=== PATIENT | female | born 1975 | race African-American/Black ===

== ENCOUNTER 2017-07-18 09:45 | Emergency (ER) | payer MEDICARE, MEDICAID ==
[~2017-07-18] VITALS: Ht 160 cm; Wt 53.0 kg
[2017-07-18 10:30] LABS: HEMATOCRIT. 30.3 % (36.0-48.0); HEMOGLOBIN. 9.5 g/dL (12.0-16.0); MEAN CORPUSCULAR VOLUME 73.1 fL (81.0-99.0); MEAN PLATELET VOLUME 8.8 fl (7.4-10.4); PLATELET 231 x1000/uL (130-400); RED BLOOD CELL COUNT 4.14 mill/uL (4.2-5.4); RED CELL DISTRIBUTION WIDTH 16.7 % (11.6-14.6)
[2017-07-18] MEDS: ONDANSETRON HCL 4MG/2ML VIAL IV STA (10:31)
[2017-07-18] MEDS: SODIUM CHLORIDE 0.9% 1,000 ML IV ONE (10:31)
[2017-07-18 10:35] LABS: CLARITY URINE CLEAR (CLEAR); COLOR URINE YELLOW (YELLOW); GLUCOSE URINE NEGATIVE (NEGATIVE); KETONES URINE TRACE (NEGATIVE); LEUKOCYTE ESTERASE URINE 2+ (NEGATIVE); NITRITE URINE NEGATIVE (NEGATIVE); OCCULT BLOOD URINE NEGATIVE (NEGATIVE); PROTEIN URINE NEGATIVE (NEGATIVE); SPECIFIC GRAVITY URINE 1.016 (1.005-1.030); UROBILINOGEN URINE 0.2 E.U./dL (0.2-1.0)
[2017-07-18 10:49] LABS: CHLORIDE 103 mEq/L (98-107)
[2017-07-18 10:59] LABS: CARBON DIOXIDE 27 mEq/L (21-32)
[2017-07-18 11:02] LABS: PLATELET ESTIMATE NORMAL
[2017-07-18] MEDS: KETOROLAC 30MG/ML VIAL IV ONE (11:14)
[2017-07-18] MEDS: FAMOTIDINE 20MG/2ML VIAL IV ONE (11:15)
[2017-07-18 12:03] VITALS: BP 114/66
== END 2017-07-18 12:27 | disposition home or self-care (01) ==
LOC: ER 10:27
DX: N39.0 Urinary tract infection, site not specified (principal); R51 Headache; R19.7 Diarrhea, unspecified; J45.909 Unspecified asthma, uncomplicated; Z88.8 Allergy status to other drugs, medicaments and biological substances
CPT/HCPCS: 36415; 80053; 81001; 81025; 83690; 85025; 96361; 96374; 96375; 99284; J1885; J3490; J7030; J2405

== ENCOUNTER 2018-10-12 09:41 | Emergency (ER) | payer MEDICARE, MEDICAID ==
[~2018-10-12] VITALS: Ht 160 cm; Wt 55.0 kg
[2018-10-12] MEDS ORDERED: ACETAMINOPHEN 325MG TABLET PO STA (10:19)
[2018-10-12] MEDS ORDERED: SODIUM CHLORIDE 0.9% 1000ML BAG (SEPSIS BOLUS) IV ONE (10:30)
[2018-10-12 10:46] LABS: CLARITY URINE CLEAR (CLEAR); COLOR URINE YELLOW (YELLOW); KETONES URINE NEGATIVE (NEGATIVE); LEUKOCYTE ESTERASE URINE NEGATIVE (NEGATIVE); NITRITE URINE NEGATIVE (NEGATIVE); OCCULT BLOOD URINE NEGATIVE (NEGATIVE); PROTEIN URINE TRACE (NEGATIVE); SPECIFIC GRAVITY URINE 1.021 (1.005-1.030); UROBILINOGEN URINE 0.2 E.U./dL (0.2-1.0)
[2018-10-12 11:14] LABS: BASOPHILS % 0.8 % (0.0-2.0); EOSINOPHILS % 0.2 % (0.0-5.0); HEMATOCRIT. 34.8 % (36.0-48.0); HEMOGLOBIN. 11.2 g/dL (12.0-16.0); LYMPHOCYTES % 30.2 % (20.0-50.0); MEAN CORPUSCULAR HEMOGLOBIN 26.4 pg (28.0-32.0); MEAN CORPUSCULAR VOLUME 81.9 fL (81.0-99.0); MEAN PLATELET VOLUME 11.3 fl (7.4-10.4); MONOCYTES % 6.9 % (2.0-8.0); NEUTROPHILS % 61.9 % (40.0-76.0); PLATELET 159 x1000/uL (130-400); RED BLOOD CELL COUNT 4.25 mill/uL (4.2-5.4); RED CELL DISTRIBUTION WIDTH 15.7 % (11.6-14.6)
[2018-10-12 11:16] LABS: CHLORIDE 107 mEq/L (98-107)
[2018-10-12 11:17] LABS: INR 1.1; PARTIAL THROMBOPLASTIN TIME 25.2 sec (23.4-31.0); PROTHROMBIN TIME 10.6 sec (9.1-11.1)
[2018-10-12 11:22] LABS: HCG SCREEN NEGATIVE
[2018-10-12] MEDS ORDERED: CEFTRIAXONE 1 G PREMIX 50 ML IV ONE (11:45)
[2018-10-12 13:31] VITALS: BP 160/81
== END 2018-10-12 13:35 | disposition home or self-care (01) ==
LOC: ER 09:41
DX: N39.0 Urinary tract infection, site not specified (principal); D72.819 Decreased white blood cell count, unspecified; R94.31 Abnormal electrocardiogram [ECG] [EKG]; R05 Cough; R94.5 Abnormal results of liver function studies; J45.909 Unspecified asthma, uncomplicated; R50.9 Fever, unspecified; Z88.8 Allergy status to other drugs, medicaments and biological substances
CPT/HCPCS: 36415; 71045; 80053; 81003; 81025; 83605; 83690; 84145; 84443; 84703; 85025; 85610; 85730; 87040; 87086; 93005; 96361; 96365; 99284; J0696; J7030

== ENCOUNTER 2018-10-22 15:28 | Emergency (ER) | payer MEDICARE, MEDICAID ==
[~2018-10-22] VITALS: Ht 165.1 cm; Wt 60.0 kg
[2018-10-22] MEDS ORDERED: KETOROLAC 30MG/ML VIAL IV STA (16:01)
[2018-10-22] MEDS ORDERED: SODIUM CHLORIDE 0.9% 1,000 ML IV ONE (16:01)
[2018-10-22 17:06] LABS: CLARITY URINE TURBID (CLEAR); COLOR URINE DARK YELLOW (YELLOW); KETONES URINE 1+ (NEGATIVE); LEUKOCYTE ESTERASE URINE 1+ (NEGATIVE); NITRITE URINE NEGATIVE (NEGATIVE); OCCULT BLOOD URINE 2+ (NEGATIVE); PROTEIN URINE 3+ (NEGATIVE); SPECIFIC GRAVITY URINE 1.026 (1.005-1.030)
[2018-10-22 17:18] LABS: BASOPHILS % 0.2 % (0.0-2.0); EOSINOPHILS % 0.1 % (0.0-5.0); HEMATOCRIT. 33.6 % (36.0-48.0); HEMOGLOBIN. 10.7 g/dL (12.0-16.0); LYMPHOCYTES % 11.2 % (20.0-50.0); MEAN CORPUSCULAR HEMOGLOBIN 25.8 pg (28.0-32.0); MEAN CORPUSCULAR VOLUME 81.3 fL (81.0-99.0); MEAN PLATELET VOLUME 11.6 fl (7.4-10.4); MONOCYTES % 7.1 % (2.0-8.0); NEUTROPHILS % 81.4 % (40.0-76.0); PLATELET 147 x1000/uL (130-400); RED BLOOD CELL COUNT 4.13 mill/uL (4.2-5.4); RED CELL DISTRIBUTION WIDTH 16.4 % (11.6-14.6)
[2018-10-22 17:19] LABS: CHLORIDE 102 mEq/L (98-107)
[2018-10-22 17:27] LABS: CREATINE KINASE 358 IU/L (26-192)
[2018-10-22 17:42] LABS: HCG SCREEN NEGATIVE
[2018-10-22 18:39] LABS: INR 1.1; PROTHROMBIN TIME 10.9 sec (9.1-11.1)
[2018-10-22 19:49] VITALS: BP 136/70
== END 2018-10-22 20:52 | disposition home or self-care (01) ==
LOC: ER 16:34
DX: K76.89 Other specified diseases of liver (principal); R79.89 Other specified abnormal findings of blood chemistry; E86.0 Dehydration; D64.9 Anemia, unspecified; M79.10 Myalgia, unspecified site; J45.909 Unspecified asthma, uncomplicated; R19.7 Diarrhea, unspecified
CPT/HCPCS: 36415; 71045; 76705; 80053; 81003; 81025; 82550; 83605; 83690; 83735; 84703; 85025; 85610; 87804; 96361; 96374; 99284; J1885; J7030

== ENCOUNTER 2018-12-30 12:53 | Inpatient (IN) | payer MEDICARE, MEDICAID ==
[~2018-12-30] VITALS: Ht 154.9 cm; Wt 70.8 kg
[2018-12-30] MEDS ORDERED: SODIUM CHLORIDE 0.9% 1,000 ML IV ONE (13:19)
[2018-12-30 14:25] LABS: *AMPHETAMINES SCREEN URINE NEGATIVE (NEGATIVE); *BARBITURATES SCREEN URINE NEGATIVE (NEGATIVE); *BENZODIAZEPINES SCREEN URINE NEGATIVE (NEGATIVE)
[2018-12-30 14:26] LABS: *COCAINE SCREEN URINE NEGATIVE (NEGATIVE); CANNABINOID URINE SCREEN NEGATIVE (NEGATIVE); METHADONE URINE SCREEN NEGATIVE (NEGATIVE); OPIATES URINE SCREEN NEGATIVE (NEGATIVE); PHENCYCLIDINE URINE SCREEN NEGATIVE (NEGATIVE)
[2018-12-30 14:50] LABS: BASOPHILS % 0.4 % (0.0-2.0); HEMATOCRIT. 31.2 % (36.0-48.0); LYMPHOCYTES % 14.5 % (20.0-50.0); MEAN CORPUSCULAR HEMOGLOBIN 27.7 pg (28.0-32.0); MEAN CORPUSCULAR VOLUME 86.3 fL (81.0-99.0); MEAN PLATELET VOLUME 9.8 fl (7.4-10.4); MONOCYTES % 4.5 % (2.0-8.0); NEUTROPHILS % 80.6 % (40.0-76.0); PLATELET 428 x1000/uL (130-400); RED BLOOD CELL COUNT 3.61 mill/uL (4.2-5.4); RED CELL DISTRIBUTION WIDTH 19.3 % (11.6-14.6)
[2018-12-30 15:00] LABS: CHLORIDE 112 mEq/L (98-107)
[2018-12-30 15:04] LABS: INR 1.1; PARTIAL THROMBOPLASTIN TIME 23.1 sec (23.4-31.0); PROTHROMBIN TIME 10.6 sec (9.1-11.1)
[2018-12-30 15:07] LABS: ETHANOL BLOOD < 10 mg/dL
[2018-12-30 15:29] LABS: HCG SCREEN NEGATIVE
[2018-12-30 16:10] LABS: CLARITY URINE CLEAR (CLEAR); COLOR URINE DARK YELLOW (YELLOW); KETONES URINE TRACE (NEGATIVE); LEUKOCYTE ESTERASE URINE NEGATIVE (NEGATIVE); NITRITE URINE NEGATIVE (NEGATIVE); OCCULT BLOOD URINE TRACE (NEGATIVE); PROTEIN URINE 1+ (NEGATIVE); SPECIFIC GRAVITY URINE 1.017 (1.005-1.030)
[2018-12-30] MEDS ORDERED: ONDANSETRON HCL 4MG/2ML INJ IV PRN (19:00)
[2018-12-30 19:52] LABS: HEPATITIS B SURFACE ANTIGEN NEGATIVE
[2018-12-30 20:22] LABS: HEPATITIS A AB IGM NEGATIVE (NEGATIVE)
[2018-12-31 01:30] VITALS: BP 145/79
[2018-12-31] MEDS: DEXT 5%/0.45% NACL 1000ML 1,000 ML IV SCH ×3 (03:50→20:44)
[2018-12-31 04:00] VITALS: BP 161/95
[2018-12-31 07:21] LABS: BASOPHILS % 0.4 % (0.0-2.0); EOSINOPHILS % 0.1 % (0.0-5.0); HEMATOCRIT. 30.4 % (36.0-48.0); HEMOGLOBIN. 9.9 g/dL (12.0-16.0); LYMPHOCYTES % 17.2 % (20.0-50.0); MEAN CORPUSCULAR HEMOGLOBIN 28.6 pg (28.0-32.0); MEAN CORPUSCULAR VOLUME 87.9 fL (81.0-99.0); MEAN PLATELET VOLUME 9.3 fl (7.4-10.4); MONOCYTES % 5.9 % (2.0-8.0); NEUTROPHILS % 76.4 % (40.0-76.0); PLATELET 387 x1000/uL (130-400); RED BLOOD CELL COUNT 3.45 mill/uL (4.2-5.4)
[2018-12-31 08:00] VITALS: BP 161/93
[2018-12-31] MEDS: FOLIC ACID 1MG TABLET PO SCH (09:08)
[2018-12-31] MEDS: THIAMINE HCL 100MG TABLET PO SCH (09:08)
[2018-12-31] MEDS: HYDRALAZINE 20MG/ML VIAL IV PRN (09:09)
[2018-12-31] MEDS: MULTIVITAMINS,THER W-MINERALS TABLET PO SCH (09:09)
[2018-12-31 09:26] LABS: T4 FREE 1.24 ng/dL (0.76-1.46)
[2018-12-31 10:31] LABS: FOLIC ACID (FOLATE) SERUM 9.6 ng/mL (>5.38)
[2018-12-31 12:01] VITALS: BP 139/85
[2018-12-31] MEDS ORDERED: IPRATROPIUM/ALBUTEROL 0.5-3(2.5)MG/3ML NEB HHN PRN (13:30)
[2018-12-31] MEDS: AMLODIPINE 5MG TABLET PO SCH (13:57)
[2018-12-31 16:00] VITALS: BP 154/93
[2018-12-31 20:31] VITALS: BP 141/89
[2018-12-31] MEDS: METOPROLOL TARTRATE 25MG TABLET PO SCH (20:43)
[2019-01-01 00:36] VITALS: BP 147/92
[2019-01-01 04:00] VITALS: BP 154/97
[2019-01-01 06:37] LABS: CHLORIDE 114 mEq/L (98-107)
[2019-01-01 06:50] LABS: BASOPHILS % 0.5 % (0.0-2.0); EOSINOPHILS % 0.2 % (0.0-5.0); HEMATOCRIT. 29.6 % (36.0-48.0); HEMOGLOBIN. 9.4 g/dL (12.0-16.0); LYMPHOCYTES % 17.2 % (20.0-50.0); MEAN CORPUSCULAR HEMOGLOBIN 27.3 pg (28.0-32.0); MEAN CORPUSCULAR VOLUME 86.1 fL (81.0-99.0); MEAN PLATELET VOLUME 8.5 fl (7.4-10.4); MONOCYTES % 5.6 % (2.0-8.0); NEUTROPHILS % 76.5 % (40.0-76.0); PLATELET 334 x1000/uL (130-400); RED BLOOD CELL COUNT 3.44 mill/uL (4.2-5.4); RED CELL DISTRIBUTION WIDTH 18.5 % (11.6-14.6)
[2019-01-01 08:00] VITALS: BP 128/87
[2019-01-01] MEDS: AMLODIPINE 5MG TABLET PO SCH ×2 (08:36→21:36)
[2019-01-01] MEDS: METOPROLOL TARTRATE 25MG TABLET PO SCH ×2 (08:36→21:35)
[2019-01-01] MEDS: THIAMINE HCL 100MG TABLET PO SCH (08:36)
[2019-01-01] MEDS: MULTIVITAMINS,THER W-MINERALS TABLET PO SCH (08:36)
[2019-01-01] MEDS: FOLIC ACID 1MG TABLET PO SCH (08:36)
[2019-01-01] MEDS: DEXT 5%/0.45% NACL 1000ML 1,000 ML IV SCH ×3 (11:52→21:45)
[2019-01-01 12:00] VITALS: BP_SYST 161; BP_DIAS 86; BP_DIAS 94
[2019-01-01] MEDS: HYDRALAZINE 20MG/ML VIAL IV PRN (12:03)
[2019-01-01 16:00] VITALS: BP 151/88
[2019-01-01 20:00] VITALS: BP 156/94
[2019-01-02] VITALS: BP 158/92
[2019-01-02 04:00] VITALS: BP 138/90
[2019-01-02 07:09] LABS: HEMOGLOBIN. 9.7 g/dL (12.0-16.0); MEAN CORPUSCULAR HEMOGLOBIN 27.7 pg (28.0-32.0); MEAN PLATELET VOLUME 8.2 fl (7.4-10.4); PLATELET 291 x1000/uL (130-400); RED BLOOD CELL COUNT 3.49 mill/uL (4.2-5.4); RED CELL DISTRIBUTION WIDTH 18.5 % (11.6-14.6)
[2019-01-02 08:00] VITALS: BP 144/91
[2019-01-02] MEDS: THIAMINE HCL 100MG TABLET PO SCH (09:23)
[2019-01-02] MEDS: AMLODIPINE 5MG TABLET PO SCH ×2 (09:23→20:28)
[2019-01-02] MEDS: FOLIC ACID 1MG TABLET PO SCH (09:23)
[2019-01-02] MEDS: METOPROLOL TARTRATE 25MG TABLET PO SCH ×2 (09:23→20:28)
[2019-01-02] MEDS: MULTIVITAMINS,THER W-MINERALS TABLET PO SCH (09:23)
[2019-01-02 10:12] LABS: CHLORIDE 112 mEq/L (98-107)
[2019-01-02 12:00] VITALS: BP 139/92
[2019-01-02] MEDS: DEXT 5%/0.45% NACL 1000ML 1,000 ML IV SCH (14:30)
[2019-01-02 16:00] VITALS: BP 148/90
[2019-01-02] MEDS: ACETAMINOPHEN 325MG TABLET PO PRN (17:55)
[2019-01-02 19:59] VITALS: BP 126/85
[2019-01-02 20:59] LABS: NUCLEATED RED BLOOD CELLS 1 /100 WBC; PLATELET ESTIMATE NORMAL
[2019-01-03] VITALS: BP 118/79
[2019-01-03] MEDS: DEXT 5%/0.45% NACL 1000ML 1,000 ML IV SCH ×2 (02:19→11:48)
[2019-01-03 04:00] VITALS: BP 135/86
[2019-01-03 07:56] LABS: BASOPHILS % 0.3 % (0.0-2.0); HEMATOCRIT. 30.4 % (36.0-48.0); HEMOGLOBIN. 9.7 g/dL (12.0-16.0); LYMPHOCYTES % 8.1 % (20.0-50.0); MEAN CORPUSCULAR HEMOGLOBIN 27.8 pg (28.0-32.0); MEAN CORPUSCULAR VOLUME 87.6 fL (81.0-99.0); MEAN PLATELET VOLUME 8.5 fl (7.4-10.4); MONOCYTES % 4.4 % (2.0-8.0); NEUTROPHILS % 87.2 % (40.0-76.0); PLATELET 222 x1000/uL (130-400); RED BLOOD CELL COUNT 3.47 mill/uL (4.2-5.4); RED CELL DISTRIBUTION WIDTH 18.9 % (11.6-14.6)
[2019-01-03 07:59] LABS: CHLORIDE 110 mEq/L (98-107)
[2019-01-03 08:00] VITALS: BP 141/45
[2019-01-03] MEDS: FOLIC ACID 1MG TABLET PO SCH (08:22)
[2019-01-03] MEDS: MULTIVITAMINS,THER W-MINERALS TABLET PO SCH (08:22)
[2019-01-03] MEDS: THIAMINE HCL 100MG TABLET PO SCH (08:22)
[2019-01-03] MEDS: AMLODIPINE 5MG TABLET PO SCH ×2 (08:22→21:18)
[2019-01-03] MEDS: METOPROLOL TARTRATE 25MG TABLET PO SCH (08:23)
[2019-01-03 12:00] VITALS: BP 142/94
[2019-01-03] MEDS ORDERED: LIDOCAINE HCL 1% 20ML VIAL (Pyxis) INJ ONE (14:30)
[2019-01-03] MEDS: MORPHINE SULFATE 4 MG/ML CPJ (NOT FOR IM USE) IV PRN (14:57)
[2019-01-03] MEDS ORDERED: MORPHINE SULFATE 4 MG/ML CPJ (NOT FOR IM USE) IV PRN (15:00)
[2019-01-03 17:20] LABS: GLUCOSE CSF 60 mg/dL (41-75)
[2019-01-03 20:00] VITALS: BP 140/84
[2019-01-03] MEDS: METOPROLOL TARTRATE 50MG TABLET PO SCH (21:18)
[2019-01-04] VITALS: BP 129/67
[2019-01-04] MEDS: ACETAMINOPHEN 325MG TABLET PO PRN ×3 (01:49→21:05)
[2019-01-04] MEDS: DEXT 5%/0.45% NACL 1000ML 1,000 ML IV SCH ×3 (02:01→22:00)
[2019-01-04 04:00] VITALS: BP 118/75
[2019-01-04 06:01] LABS: BASOPHILS % 0.1 % (0.0-2.0); EOSINOPHILS % 0.1 % (0.0-5.0); HEMATOCRIT. 28.6 % (36.0-48.0); HEMOGLOBIN. 9.1 g/dL (12.0-16.0); LYMPHOCYTES % 10.8 % (20.0-50.0); MEAN CORPUSCULAR HEMOGLOBIN 27.8 pg (28.0-32.0); MEAN CORPUSCULAR VOLUME 87.5 fL (81.0-99.0); MEAN PLATELET VOLUME 8.9 fl (7.4-10.4); MONOCYTES % 4.2 % (2.0-8.0); NEUTROPHILS % 84.8 % (40.0-76.0); PLATELET 193 x1000/uL (130-400); RED BLOOD CELL COUNT 3.27 mill/uL (4.2-5.4); RED CELL DISTRIBUTION WIDTH 18.6 % (11.6-14.6)
[2019-01-04 06:16] LABS: CHLORIDE 110 mEq/L (98-107)
[2019-01-04 08:00] VITALS: BP 135/83
[2019-01-04] MEDS: FOLIC ACID 1MG TABLET PO SCH (10:10)
[2019-01-04] MEDS: MULTIVITAMINS,THER W-MINERALS TABLET PO SCH (10:10)
[2019-01-04] MEDS: METOPROLOL TARTRATE 50MG TABLET PO SCH ×2 (10:10→21:05)
[2019-01-04] MEDS: AMLODIPINE 5MG TABLET PO SCH ×2 (10:10→21:05)
[2019-01-04] MEDS: THIAMINE HCL 100MG TABLET PO SCH (10:11)
[2019-01-04] MEDS ORDERED: POTASSIUM CHLORIDE 20MEQ TABLET SR PO NR (15:21)
[2019-01-04 20:00] VITALS: BP 147/84
[2019-01-04 20:28] LABS: CLARITY URINE CLOUDY (CLEAR); COLOR URINE YELLOW (YELLOW); KETONES URINE NEGATIVE (NEGATIVE); LEUKOCYTE ESTERASE URINE TRACE (NEGATIVE); NITRITE URINE NEGATIVE (NEGATIVE); OCCULT BLOOD URINE 3+ (NEGATIVE); PH URINE 5.5 (4.5-8.0); PROTEIN URINE 1+ (NEGATIVE); SPECIFIC GRAVITY URINE 1.015 (1.005-1.030); UROBILINOGEN URINE 0.2 E.U./dL (0.2-1.0)
[2019-01-04 22:40] VITALS: BP 111/71
[2019-01-05] VITALS (12 sets, daily range): BP systolic 124–144; BP diastolic 67–88
[2019-01-05] MEDS: CEFEPIME 2,000 MG in DEXT 5% WATER 100 ML IV SCH ×2 (01:03→12:40)
[2019-01-05] MEDS: DEXT 5%/0.45% NACL 1000ML 1,000 ML IV SCH ×2 (06:04→12:41)
[2019-01-05 07:53] LABS: EOSINOPHILS % 0.4 % (0.0-5.0); HEMATOCRIT. 27.3 % (36.0-48.0); HEMOGLOBIN. 8.6 g/dL (12.0-16.0); LYMPHOCYTES % 11.1 % (20.0-50.0); MEAN CORPUSCULAR HEMOGLOBIN 27.3 pg (28.0-32.0); MEAN CORPUSCULAR VOLUME 85.9 fL (81.0-99.0); MEAN PLATELET VOLUME 9.4 fl (7.4-10.4); MONOCYTES % 4.8 % (2.0-8.0); NEUTROPHILS % 83.7 % (40.0-76.0); PLATELET 190 x1000/uL (130-400); RED BLOOD CELL COUNT 3.17 mill/uL (4.2-5.4); RED CELL DISTRIBUTION WIDTH 18.2 % (11.6-14.6)
[2019-01-05 07:54] LABS: CHLORIDE 106 mEq/L (98-107)
[2019-01-05] MEDS: MULTIVITAMINS,THER W-MINERALS TABLET PO SCH (09:08)
[2019-01-05] MEDS: AMLODIPINE 5MG TABLET PO SCH ×2 (09:08→21:18)
[2019-01-05] MEDS: METOPROLOL TARTRATE 50MG TABLET PO SCH ×2 (09:08→21:19)
[2019-01-05] MEDS: THIAMINE HCL 100MG TABLET PO SCH (09:08)
[2019-01-05] MEDS: FOLIC ACID 1MG TABLET PO SCH (09:08)
[2019-01-05] MEDS: MORPHINE SULFATE 4 MG/ML CPJ (NOT FOR IM USE) IV PRN (09:13)
[2019-01-05] MEDS: ACETAMINOPHEN 325MG TABLET PO PRN (17:16)
[2019-01-06] VITALS (11 sets, daily range): BP systolic 130–145; BP diastolic 67–87
[2019-01-06] MEDS: DEXT 5%/0.45% NACL 1000ML 1,000 ML IV SCH ×3 (05:39→19:57)
[2019-01-06] MEDS: CEFEPIME 2,000 MG in DEXT 5% WATER 100 ML IV SCH ×2 (05:39→13:17)
[2019-01-06 06:35] LABS: HEMATOCRIT. 27.4 % (36.0-48.0); HEMOGLOBIN. 8.8 g/dL (12.0-16.0); MEAN CORPUSCULAR HEMOGLOBIN 27.5 pg (28.0-32.0); MEAN CORPUSCULAR VOLUME 85.6 fL (81.0-99.0); MEAN PLATELET VOLUME 9.4 fl (7.4-10.4); PLATELET 193 x1000/uL (130-400); RED BLOOD CELL COUNT 3.19 mill/uL (4.2-5.4); RED CELL DISTRIBUTION WIDTH 17.9 % (11.6-14.6)
[2019-01-06 07:11] LABS: CHLORIDE 104 mEq/L (98-107)
[2019-01-06] MEDS: THIAMINE HCL 100MG TABLET PO SCH (08:48)
[2019-01-06] MEDS: METOPROLOL TARTRATE 50MG TABLET PO SCH ×2 (08:48→20:04)
[2019-01-06] MEDS: AMLODIPINE 5MG TABLET PO SCH ×2 (08:48→20:04)
[2019-01-06] MEDS: MULTIVITAMINS,THER W-MINERALS TABLET PO SCH (08:48)
[2019-01-06] MEDS: FOLIC ACID 1MG TABLET PO SCH (08:48)
[2019-01-06 12:37] LABS: PLATELET ESTIMATE NORMAL
[2019-01-07] VITALS (12 sets, daily range): BP systolic 117–151; BP diastolic 66–82
[2019-01-07] MEDS: CEFEPIME 2,000 MG in DEXT 5% WATER 100 ML IV SCH ×2 (00:49→12:17)
[2019-01-07] MEDS: DEXT 5%/0.45% NACL 1000ML 1,000 ML IV SCH ×2 (06:15→15:58)
[2019-01-07 08:14] LABS: BASOPHILS % 0.8 % (0.0-2.0); EOSINOPHILS % 0.2 % (0.0-5.0); HEMOGLOBIN. 7.8 g/dL (12.0-16.0); LYMPHOCYTES % 20.2 % (20.0-50.0); MEAN CORPUSCULAR HEMOGLOBIN 27.2 pg (28.0-32.0); MEAN CORPUSCULAR VOLUME 83.5 fL (81.0-99.0); MEAN PLATELET VOLUME 9.3 fl (7.4-10.4); MONOCYTES % 4.3 % (2.0-8.0); NEUTROPHILS % 74.5 % (40.0-76.0); PLATELET 155 x1000/uL (130-400); RED BLOOD CELL COUNT 2.88 mill/uL (4.2-5.4); RED CELL DISTRIBUTION WIDTH 17.3 % (11.6-14.6)
[2019-01-07 08:53] LABS: CHLORIDE 104 mEq/L (98-107)
[2019-01-07] MEDS: FOLIC ACID 1MG TABLET PO SCH (09:27)
[2019-01-07] MEDS: AMLODIPINE 5MG TABLET PO SCH ×2 (09:27→21:35)
[2019-01-07] MEDS: MULTIVITAMINS,THER W-MINERALS TABLET PO SCH (09:28)
[2019-01-07] MEDS: THIAMINE HCL 100MG TABLET PO SCH (09:28)
[2019-01-07] MEDS: METOPROLOL TARTRATE 50MG TABLET PO SCH ×2 (09:28→21:35)
[2019-01-07 11:49] LABS: TOTAL IRON BINDING CAPACITY 132 ug/dL (250-450)
[2019-01-07] MEDS: ACETAMINOPHEN 325MG TABLET PO PRN (16:37)
[2019-01-08] VITALS (10 sets, daily range): BP systolic 124–150; BP diastolic 73–85
[2019-01-08] MEDS: CEFEPIME 2,000 MG in DEXT 5% WATER 100 ML IV SCH ×2 (00:28→11:53)
[2019-01-08] MEDS: DEXT 5%/0.45% NACL 1000ML 1,000 ML IV SCH ×3 (03:04→21:13)
[2019-01-08 06:23] LABS: CHLORIDE 104 mEq/L (98-107)
[2019-01-08 07:43] LABS: BASOPHILS % 0.7 % (0.0-2.0); EOSINOPHILS % 0.4 % (0.0-5.0); HEMOGLOBIN. 7.5 g/dL (12.0-16.0); LYMPHOCYTES % 24.8 % (20.0-50.0); MEAN CORPUSCULAR HEMOGLOBIN 27.3 pg (28.0-32.0); MEAN CORPUSCULAR VOLUME 83.5 fL (81.0-99.0); MEAN PLATELET VOLUME 9.9 fl (7.4-10.4); MONOCYTES % 3.8 % (2.0-8.0); NEUTROPHILS % 70.3 % (40.0-76.0); PLATELET 180 x1000/uL (130-400); RED BLOOD CELL COUNT 2.76 mill/uL (4.2-5.4); RED CELL DISTRIBUTION WIDTH 17.4 % (11.6-14.6)
[2019-01-08] MEDS: THIAMINE HCL 100MG TABLET PO SCH (08:36)
[2019-01-08] MEDS: AMLODIPINE 5MG TABLET PO SCH ×2 (08:36→21:12)
[2019-01-08] MEDS: MULTIVITAMINS,THER W-MINERALS TABLET PO SCH (08:36)
[2019-01-08] MEDS: METOPROLOL TARTRATE 50MG TABLET PO SCH ×2 (08:37→21:12)
[2019-01-08] MEDS: FOLIC ACID 1MG TABLET PO SCH (08:37)
[2019-01-08] MEDS ORDERED: POTASSIUM CHLORIDE 20MEQ/PACKET PO SCH (09:00)
[2019-01-08] MEDS ORDERED: POTASSIUM CHLORIDE INJ 40 MEQ in DEXT 5% WATER 250 ML IV SCH (10:00)
[2019-01-08] MEDS: MORPHINE SULFATE 4 MG/ML CPJ (NOT FOR IM USE) IV PRN (11:53)
[2019-01-08 14:18] LABS: *HSV 1 DNA PCR Negative (Negative); *HSV 2 DNA PCR Negative (Negative)
[2019-01-09] VITALS (10 sets, daily range): BP systolic 97–169; BP diastolic 58–99
[2019-01-09] MEDS: CEFEPIME 2,000 MG in DEXT 5% WATER 100 ML IV SCH ×2 (00:41→12:13)
[2019-01-09] MEDS: DEXT 5%/0.45% NACL 1000ML 1,000 ML IV SCH ×2 (06:30→16:17)
[2019-01-09 06:53] LABS: EOSINOPHILS % 0.3 % (0.0-5.0); HEMATOCRIT. 25.8 % (36.0-48.0); HEMOGLOBIN. 8.5 g/dL (12.0-16.0); LYMPHOCYTES % 34.8 % (20.0-50.0); MEAN CORPUSCULAR HEMOGLOBIN 27.1 pg (28.0-32.0); MEAN CORPUSCULAR VOLUME 82.1 fL (81.0-99.0); MEAN PLATELET VOLUME 9.4 fl (7.4-10.4); MONOCYTES % 4.3 % (2.0-8.0); NEUTROPHILS % 59.6 % (40.0-76.0); PLATELET 217 x1000/uL (130-400); RED BLOOD CELL COUNT 3.14 mill/uL (4.2-5.4); RED CELL DISTRIBUTION WIDTH 16.8 % (11.6-14.6)
[2019-01-09 07:07] LABS: CHLORIDE 104 mEq/L (98-107)
[2019-01-09] MEDS: METOPROLOL TARTRATE 50MG TABLET PO SCH ×2 (09:00→21:18)
[2019-01-09] MEDS: AMLODIPINE 5MG TABLET PO SCH ×2 (09:00→21:17)
[2019-01-09] MEDS: FOLIC ACID 1MG TABLET PO SCH (09:20)
[2019-01-09] MEDS: MULTIVITAMINS,THER W-MINERALS TABLET PO SCH (09:20)
[2019-01-09] MEDS: THIAMINE HCL 100MG TABLET PO SCH (09:22)
[2019-01-09 11:08] LABS: BASOPHILS % 0.7 % (0.0-2.0); EOSINOPHILS % 0.2 % (0.0-5.0); HEMOGLOBIN. 7.7 g/dL (12.0-16.0); MEAN CORPUSCULAR HEMOGLOBIN 27.7 pg (28.0-32.0); MEAN CORPUSCULAR VOLUME 83.2 fL (81.0-99.0); MEAN PLATELET VOLUME 9.6 fl (7.4-10.4); MONOCYTES % 4.5 % (2.0-8.0); NEUTROPHILS % 73.6 % (40.0-76.0); PLATELET 189 x1000/uL (130-400); RED BLOOD CELL COUNT 2.77 mill/uL (4.2-5.4); RED CELL DISTRIBUTION WIDTH 17.3 % (11.6-14.6)
[2019-01-09 11:29] LABS: CHLORIDE 104 mEq/L (98-107)
[2019-01-09] MEDS ORDERED: POTASSIUM CHLORIDE INJ 40 MEQ in DEXT 5% WATER 250 ML IV SCH (15:00)
[2019-01-09] MEDS ORDERED: MORPHINE SULFATE 4 MG/ML CPJ (NOT FOR IM USE) IV PRN (21:00)
[2019-01-09] MEDS: AMPICILLIN 2,000 MG in SODIUM CHLORIDE 0.9% 100 ML IV SCH (21:19)
[2019-01-10] VITALS (7 sets, daily range): BP systolic 137–160; BP diastolic 75–87
[2019-01-10] MEDS: DEXT 5%/0.45% NACL 1000ML 1,000 ML IV SCH ×3 (03:09→20:28)
[2019-01-10] MEDS: AMPICILLIN 2,000 MG in SODIUM CHLORIDE 0.9% 100 ML IV SCH ×4 (03:20→20:24)
[2019-01-10] MEDS: ACETAMINOPHEN 325MG TABLET PO PRN (06:01)
[2019-01-10 07:45] LABS: CHLORIDE 106 mEq/L (98-107)
[2019-01-10] MEDS: THIAMINE HCL 100MG TABLET PO SCH (08:41)
[2019-01-10] MEDS: FOLIC ACID 1MG TABLET PO SCH (08:41)
[2019-01-10] MEDS: MULTIVITAMINS,THER W-MINERALS TABLET PO SCH (08:41)
[2019-01-10] MEDS: AMLODIPINE 5MG TABLET PO SCH ×2 (08:43→20:25)
[2019-01-10] MEDS: METOPROLOL TARTRATE 50MG TABLET PO SCH ×2 (08:43→20:24)
[2019-01-10 11:05] LABS: BASOPHILS % 0.7 % (0.0-2.0); EOSINOPHILS % 0.1 % (0.0-5.0); HEMATOCRIT. 21.4 % (36.0-48.0); HEMOGLOBIN. 7.1 g/dL (12.0-16.0); MEAN CORPUSCULAR HEMOGLOBIN 27.4 pg (28.0-32.0); MEAN CORPUSCULAR VOLUME 82.9 fL (81.0-99.0); MEAN PLATELET VOLUME 9.5 fl (7.4-10.4); MONOCYTES % 2.8 % (2.0-8.0); NEUTROPHILS % 70.4 % (40.0-76.0); PLATELET 165 x1000/uL (130-400); RED BLOOD CELL COUNT 2.58 mill/uL (4.2-5.4); RED CELL DISTRIBUTION WIDTH 17.1 % (11.6-14.6)
[2019-01-11] VITALS: BP 117/74
[2019-01-11 04:16] VITALS: BP 135/80
[2019-01-11] MEDS: AMPICILLIN 2,000 MG in SODIUM CHLORIDE 0.9% 100 ML IV SCH ×2 (04:24→10:31)
[2019-01-11 06:50] LABS: CHLORIDE 105 mEq/L (98-107)
[2019-01-11 07:04] LABS: BASOPHILS % 0.6 % (0.0-2.0); EOSINOPHILS % 0.1 % (0.0-5.0); HEMATOCRIT. 23.6 % (36.0-48.0); HEMOGLOBIN. 7.8 g/dL (12.0-16.0); LYMPHOCYTES % 18.2 % (20.0-50.0); MEAN CORPUSCULAR HEMOGLOBIN 27.6 pg (28.0-32.0); MEAN CORPUSCULAR VOLUME 83.5 fL (81.0-99.0); MEAN PLATELET VOLUME 9.3 fl (7.4-10.4); MONOCYTES % 2.7 % (2.0-8.0); NEUTROPHILS % 78.4 % (40.0-76.0); PLATELET 227 x1000/uL (130-400); RED BLOOD CELL COUNT 2.82 mill/uL (4.2-5.4); RED CELL DISTRIBUTION WIDTH 17.2 % (11.6-14.6)
[2019-01-11 08:00] VITALS: BP 147/68
[2019-01-11] MEDS: MULTIVITAMINS,THER W-MINERALS TABLET PO SCH ×2 (09:00→09:12)
[2019-01-11] MEDS: AMLODIPINE 5MG TABLET PO SCH ×3 (09:00→21:08)
[2019-01-11] MEDS: METOPROLOL TARTRATE 50MG TABLET PO SCH ×3 (09:00→21:09)
[2019-01-11] MEDS: THIAMINE HCL 100MG TABLET PO SCH ×2 (09:00→09:11)
[2019-01-11] MEDS: FOLIC ACID 1MG TABLET PO SCH ×2 (09:00→09:12)
[2019-01-11] MEDS: ACETAMINOPHEN 325MG TABLET PO PRN ×2 (09:11→17:22)
[2019-01-11] MEDS: DEXT 5%/0.45% NACL 1000ML 1,000 ML IV SCH (09:16)
[2019-01-11 12:00] VITALS: BP 138/71
[2019-01-11 16:00] VITALS: BP 159/77
[2019-01-11 17:06] LABS: ANTI-NUCLEAR ANTIBODIES DIRECT Positive (Negative)
[2019-01-11] MEDS: DEXT 5%/0.9% NACL 1,000 ML IV SCH (17:45)
[2019-01-11] MEDS ORDERED: ACETAMINOPHEN 650MG SUPP PR PRN (17:45)
[2019-01-11] MEDS: ENOXAPARIN 40MG/0.4ML SYR SUBCUT SCH (18:17)
[2019-01-11 20:00] VITALS: BP 151/74
[2019-01-12] VITALS: BP 145/83
[2019-01-12 04:00] VITALS: BP 131/77
[2019-01-12 06:43] LABS: BASOPHILS % 0.4 % (0.0-2.0); EOSINOPHILS % 0.1 % (0.0-5.0); HEMATOCRIT. 26.7 % (36.0-48.0); HEMOGLOBIN. 8.8 g/dL (12.0-16.0); MEAN CORPUSCULAR HEMOGLOBIN 27.6 pg (28.0-32.0); MEAN CORPUSCULAR VOLUME 83.3 fL (81.0-99.0); MEAN PLATELET VOLUME 9.2 fl (7.4-10.4); MONOCYTES % 2.7 % (2.0-8.0); NEUTROPHILS % 73.8 % (40.0-76.0); PLATELET 262 x1000/uL (130-400); RED CELL DISTRIBUTION WIDTH 17.2 % (11.6-14.6)
[2019-01-12 07:49] LABS: CHLORIDE 105 mEq/L (98-107)
[2019-01-12 08:20] VITALS: BP 126/69
[2019-01-12] MEDS: DEXT 5%/0.9% NACL 1,000 ML IV SCH (08:20)
[2019-01-12] MEDS: METOPROLOL TARTRATE 50MG TABLET PO SCH ×2 (08:20→20:29)
[2019-01-12] MEDS: THIAMINE HCL 100MG TABLET PO SCH (08:20)
[2019-01-12] MEDS: AMLODIPINE 5MG TABLET PO SCH ×2 (08:20→20:29)
[2019-01-12] MEDS: MULTIVITAMINS,THER W-MINERALS TABLET PO SCH (08:20)
[2019-01-12] MEDS: FOLIC ACID 1MG TABLET PO SCH (08:20)
[2019-01-12 12:43] VITALS: BP 105/60
[2019-01-12] MEDS: ENOXAPARIN 40MG/0.4ML SYR SUBCUT SCH (17:09)
[2019-01-12 17:15] VITALS: BP 146/76
[2019-01-12] MEDS ORDERED: KCL 20MEQ/100ML PREMIX 100 ML IV NR (18:30)
[2019-01-12 20:00] VITALS: BP 141/70
[2019-01-13] VITALS: BP 159/83
[2019-01-13] MEDS: DEXT 5%/0.9% NACL 1,000 ML IV SCH ×2 (01:07→17:42)
[2019-01-13 04:00] VITALS: BP 157/81
[2019-01-13 06:46] LABS: BASOPHILS % 0.4 % (0.0-2.0); EOSINOPHILS % 0.2 % (0.0-5.0); HEMATOCRIT. 23.6 % (36.0-48.0); HEMOGLOBIN. 7.9 g/dL (12.0-16.0); LYMPHOCYTES % 20.8 % (20.0-50.0); MEAN CORPUSCULAR HEMOGLOBIN 27.8 pg (28.0-32.0); MEAN CORPUSCULAR VOLUME 83.6 fL (81.0-99.0); MEAN PLATELET VOLUME 8.9 fl (7.4-10.4); MONOCYTES % 2.6 % (2.0-8.0); PLATELET 249 x1000/uL (130-400); RED BLOOD CELL COUNT 2.83 mill/uL (4.2-5.4)
[2019-01-13 08:15] VITALS: BP 138/76
[2019-01-13 09:06] LABS: CHLORIDE 109 mEq/L (98-107)
[2019-01-13] MEDS: THIAMINE HCL 100MG TABLET PO SCH (09:06)
[2019-01-13] MEDS: METOPROLOL TARTRATE 50MG TABLET PO SCH ×2 (09:06→21:38)
[2019-01-13] MEDS: FOLIC ACID 1MG TABLET PO SCH (09:06)
[2019-01-13] MEDS: MULTIVITAMINS,THER W-MINERALS TABLET PO SCH (09:06)
[2019-01-13] MEDS: AMLODIPINE 5MG TABLET PO SCH ×2 (09:06→21:37)
[2019-01-13 11:29] VITALS: BP 156/77
[2019-01-13 15:54] VITALS: BP 187/94
[2019-01-13 20:06] VITALS: BP 179/86
[2019-01-14] VITALS: BP 175/84
[2019-01-14 04:00] VITALS: BP 151/81
[2019-01-14 06:41] LABS: BASOPHILS % 0.3 % (0.0-2.0); HEMATOCRIT. 27.6 % (36.0-48.0); LYMPHOCYTES % 25.5 % (20.0-50.0); MEAN CORPUSCULAR HEMOGLOBIN 27.5 pg (28.0-32.0); MEAN CORPUSCULAR VOLUME 84.6 fL (81.0-99.0); MEAN PLATELET VOLUME 9.2 fl (7.4-10.4); MONOCYTES % 3.1 % (2.0-8.0); NEUTROPHILS % 71.1 % (40.0-76.0); PLATELET 271 x1000/uL (130-400); RED BLOOD CELL COUNT 3.26 mill/uL (4.2-5.4); RED CELL DISTRIBUTION WIDTH 16.9 % (11.6-14.6)
[2019-01-14 07:57] LABS: CHLORIDE 110 mEq/L (98-107)
[2019-01-14 08:06] LABS: CREATINE KINASE 116 IU/L (26-192)
[2019-01-14] MEDS: FOLIC ACID 1MG TABLET PO SCH (08:24)
[2019-01-14] MEDS: THIAMINE HCL 100MG TABLET PO SCH (08:24)
[2019-01-14] MEDS: MULTIVITAMINS,THER W-MINERALS TABLET PO SCH (08:24)
[2019-01-14] MEDS: AMLODIPINE 5MG TABLET PO SCH ×2 (08:25→21:26)
[2019-01-14] MEDS: METOPROLOL TARTRATE 50MG TABLET PO SCH ×2 (08:25→21:26)
[2019-01-14 08:28] VITALS: BP 136/82
[2019-01-14] MEDS: DEXT 5%/0.9% NACL 1,000 ML IV SCH (08:35)
[2019-01-14 12:00] VITALS: BP 140/72
[2019-01-14 15:38] VITALS: BP 140/83
[2019-01-14 18:09] LABS: CHLORIDE 110 mEq/L (98-107)
[2019-01-14] MEDS ORDERED: POTASSIUM CHLORIDE 20MEQ TABLET SR PO SCH (18:15)
[2019-01-14 20:00] VITALS: BP 137/71
[2019-01-14] MEDS ORDERED: KCL 20MEQ/100ML PREMIX 100 ML IV NR (21:00)
[2019-01-14] MEDS ORDERED: MAGNESIUM 4 G PREMIX 100 ML IV NR (21:00)
[2019-01-14] MEDS: METHYLPREDNISOLONE SOD SUCC 40 MG/ML VIAL IV SCH (23:24)
[2019-01-15] VITALS: BP 117/69
[2019-01-15 04:00] VITALS: BP 117/63
[2019-01-15 06:13] LABS: BARBITURATE SCREEN Negative ug/mL (Cutoff:0.1); BENZODIAZEPINE SCREEN Negative ng/mL (Cutoff:20); OPIATES SCREEN Negative ng/mL (Cutoff:5); PHENCYCLIDINE SCREEN Negative ng/mL (Cutoff:8)
[2019-01-15] MEDS: DEXT 5%/0.9% NACL 1,000 ML IV SCH ×2 (06:27→14:09)
[2019-01-15] MEDS: METHYLPREDNISOLONE SOD SUCC 40 MG/ML VIAL IV SCH ×3 (06:27→17:54)
[2019-01-15] MEDS: AMLODIPINE 5MG TABLET PO SCH ×2 (08:51→21:40)
[2019-01-15] MEDS: THIAMINE HCL 100MG TABLET PO SCH (08:51)
[2019-01-15] MEDS: FOLIC ACID 1MG TABLET PO SCH (08:51)
[2019-01-15] MEDS: METOPROLOL TARTRATE 50MG TABLET PO SCH ×2 (08:51→21:40)
[2019-01-15] MEDS: MULTIVITAMINS,THER W-MINERALS TABLET PO SCH (08:51)
[2019-01-15 09:05] LABS: BASOPHILS % 0.1 % (0.0-2.0); HEMATOCRIT. 22.8 % (36.0-48.0); HEMOGLOBIN. 7.4 g/dL (12.0-16.0); LYMPHOCYTES % 16.8 % (20.0-50.0); MEAN CORPUSCULAR HEMOGLOBIN 27.9 pg (28.0-32.0); MEAN CORPUSCULAR VOLUME 86.1 fL (81.0-99.0); MONOCYTES % 3.1 % (2.0-8.0); PLATELET 207 x1000/uL (130-400); RED BLOOD CELL COUNT 2.65 mill/uL (4.2-5.4); RED CELL DISTRIBUTION WIDTH 16.9 % (11.6-14.6)
[2019-01-15 09:06] LABS: IMMUNOGLOBULIN A 213 mg/dL (87-352); IMMUNOGLOBULIN G 3119 mg/dL (700-1600); IMMUNOGLOBULIN M 168 mg/dL (26-217)
[2019-01-15 11:51] VITALS: BP 112/66
[2019-01-15 12:00] VITALS: BP 127/78
[2019-01-15 15:05] LABS: CHLORIDE 112 mEq/L (98-107)
[2019-01-15 15:48] VITALS: BP 116/75
[2019-01-15 17:06] LABS: A/G RATIO 0.4 (0.7-1.7); ALPHA-1-GLOBULIN 0.3 g/dL (0.0-0.4); BETA GLOBULIN 0.8 g/dL (0.7-1.3); GAMMA GLOBULINS 2.7 g/dL (0.4-1.8); GLOBULIN TOTAL 4.8 g/dL (2.2-3.9); M-SPIKE Not Observed g/dL (Not Observed); TOTAL PROTEIN SERUM 6.8 g/dL (6.0-8.5)
[2019-01-15 19:06] LABS: ANTI-DNA DOUBLE STRANDED QUANT > 300 IU/mL (0-9); RNP ANTIBODY > 8.0 AI (0.0-0.9); SMITH ANTIBODY > 8.0 AI (0.0-0.9)
[2019-01-15 20:00] VITALS: BP 147/66
[2019-01-16] VITALS (11 sets, daily range): BP systolic 107–149; BP diastolic 59–78
[2019-01-16] MEDS ORDERED: METHYLPREDNISOLONE SOD SUCC 40 MG/ML VIAL IV SCH
[2019-01-16] MEDS: METHYLPREDNISOLONE 125MG 250 MG in DEXT 5% WATER 100 ML IV SCH ×4 (00:09→17:55)
[2019-01-16] MEDS: DEXT 5%/0.9% NACL 1,000 ML IV SCH ×2 (00:10→20:57)
[2019-01-16 06:59] LABS: BASOPHILS % 0.3 % (0.0-2.0); HEMATOCRIT. 21.1 % (36.0-48.0); LYMPHOCYTES % 26.9 % (20.0-50.0); MEAN CORPUSCULAR HEMOGLOBIN 27.9 pg (28.0-32.0); MEAN CORPUSCULAR VOLUME 84.3 fL (81.0-99.0); MEAN PLATELET VOLUME 10.5 fl (7.4-10.4); MONOCYTES % 2.8 % (2.0-8.0); PLATELET 252 x1000/uL (130-400); RED BLOOD CELL COUNT 2.51 mill/uL (4.2-5.4); RED CELL DISTRIBUTION WIDTH 17.2 % (11.6-14.6)
[2019-01-16 07:15] LABS: CHLORIDE 112 mEq/L (98-107)
[2019-01-16] MEDS: METOPROLOL TARTRATE 50MG TABLET PO SCH ×2 (09:00→20:54)
[2019-01-16] MEDS: FOLIC ACID 1MG TABLET PO SCH (09:00)
[2019-01-16] MEDS: THIAMINE HCL 100MG TABLET PO SCH (09:01)
[2019-01-16] MEDS: AMLODIPINE 5MG TABLET PO SCH ×2 (09:01→20:54)
[2019-01-16] MEDS: MULTIVITAMINS,THER W-MINERALS TABLET PO SCH (09:01)
[2019-01-16 09:06] LABS: COMPLEMENT C3 39 mg/dL (82-167); GLOMERULAR BASEMENT MEMB AB 8 units (0-20)
[2019-01-16 13:06] LABS: ACTIN (SMOOTH MUSCLE) ANTIBODY 33 Units (0-19); ALDOLASE 1.7 U/L (3.3-10.3); ANTI-MYELOPEROXIDASE AB < 9.0 U/mL (0.0-9.0); ANTI-PROTEINASE 3 ABS < 3.5 U/mL (0.0-3.5)
[2019-01-16 18:08] LABS: HEMATOCRIT 27.5 % (36.0-48.0)
[2019-01-16 18:09] LABS: PROTHROMBIN TIME 10.5 sec (9.1-11.1)
[2019-01-16 19:06] LABS: CYC CITRULLINATED PEP IgG/IgA 20 units (0-19)
[2019-01-17] VITALS (7 sets, daily range): BP systolic 117–154; BP diastolic 66–83
[2019-01-17] MEDS: METHYLPREDNISOLONE 125MG 250 MG in DEXT 5% WATER 100 ML IV SCH ×5 (00:02→23:32)
[2019-01-17] MEDS: DEXT 5%/0.9% NACL 1,000 ML IV SCH (05:57)
[2019-01-17 06:33] LABS: BASOPHILS % 0.1 % (0.0-2.0); HEMOGLOBIN. 9.2 g/dL (12.0-16.0); LYMPHOCYTES % 17.1 % (20.0-50.0); MEAN CORPUSCULAR HEMOGLOBIN 28.1 pg (28.0-32.0); MEAN CORPUSCULAR VOLUME 85.3 fL (81.0-99.0); MEAN PLATELET VOLUME 9.3 fl (7.4-10.4); MONOCYTES % 3.6 % (2.0-8.0); NEUTROPHILS % 79.2 % (40.0-76.0); PLATELET 244 x1000/uL (130-400); RED BLOOD CELL COUNT 3.29 mill/uL (4.2-5.4); RED CELL DISTRIBUTION WIDTH 16.3 % (11.6-14.6)
[2019-01-17 06:44] LABS: CHLORIDE 111 mEq/L (98-107)
[2019-01-17 09:06] LABS: ANGIOTENSION CONVERTING ENZYME 105 U/L (14-82)
[2019-01-17] MEDS: MULTIVITAMINS,THER W-MINERALS TABLET PO SCH (09:33)
[2019-01-17] MEDS: AMLODIPINE 5MG TABLET PO SCH ×2 (09:33→20:31)
[2019-01-17] MEDS: METOPROLOL TARTRATE 50MG TABLET PO SCH ×2 (09:34→20:31)
[2019-01-17] MEDS: FOLIC ACID 1MG TABLET PO SCH (09:34)
[2019-01-17] MEDS: THIAMINE HCL 100MG TABLET PO SCH (09:34)
[2019-01-17 15:06] LABS: ATYPICAL P-ANCA <1:20 titer (Neg:<1:20); CYTOPLASMIC C-ANCA <1:20 titer (Neg:<1:20)
[2019-01-17 17:06] LABS: ANA IFA Positive (.)
[2019-01-18] VITALS: BP 168/86
[2019-01-18] MEDS: DEXT 5%/0.9% NACL 1,000 ML IV SCH (02:49)
[2019-01-18 04:00] VITALS: BP 168/85
[2019-01-18] MEDS: METHYLPREDNISOLONE 125MG 250 MG in DEXT 5% WATER 100 ML IV SCH ×3 (05:18→17:35)
[2019-01-18 08:00] VITALS: BP 170/84
[2019-01-18 08:02] LABS: CHLORIDE 111 mEq/L (98-107)
[2019-01-18 08:16] LABS: BASOPHILS % 0.4 % (0.0-2.0); HEMATOCRIT. 25.4 % (36.0-48.0); HEMOGLOBIN. 8.3 g/dL (12.0-16.0); LYMPHOCYTES % 15.7 % (20.0-50.0); MEAN CORPUSCULAR HEMOGLOBIN 27.9 pg (28.0-32.0); MEAN CORPUSCULAR VOLUME 85.3 fL (81.0-99.0); MEAN PLATELET VOLUME 9.4 fl (7.4-10.4); MONOCYTES % 3.6 % (2.0-8.0); NEUTROPHILS % 80.3 % (40.0-76.0); PLATELET 249 x1000/uL (130-400); RED BLOOD CELL COUNT 2.98 mill/uL (4.2-5.4); RED CELL DISTRIBUTION WIDTH 16.8 % (11.6-14.6)
[2019-01-18] MEDS: METOPROLOL TARTRATE 50MG TABLET PO SCH ×2 (08:36→21:02)
[2019-01-18] MEDS: THIAMINE HCL 100MG TABLET PO SCH (08:36)
[2019-01-18] MEDS: FOLIC ACID 1MG TABLET PO SCH (08:36)
[2019-01-18] MEDS: MULTIVITAMINS,THER W-MINERALS TABLET PO SCH (08:36)
[2019-01-18] MEDS: AMLODIPINE 5MG TABLET PO SCH ×2 (08:37→21:02)
[2019-01-18] MEDS: METHOTREXATE SODIUM/PF 50 MG/2 ML VIAL IM NR (10:35)
[2019-01-18 12:00] VITALS: BP 163/84
[2019-01-18] MEDS ORDERED: HYDRALAZINE HCL 50MG TABLET PO SCH (13:30)
[2019-01-18 16:00] VITALS: BP 169/83
[2019-01-18] MEDS: SODIUM CHLORIDE 0.9% 1,000 ML IV NR ×2 (18:46→21:57)
[2019-01-18 20:11] VITALS: BP 129/73
[2019-01-18] MEDS ORDERED: FOLIC ACID 1MG TABLET PO SCH (20:15)
[2019-01-19] VITALS: BP 133/81
[2019-01-19] MEDS: METHYLPREDNISOLONE SOD SUCC 40 MG/ML VIAL IV SCH ×4 (00:27→18:10)
[2019-01-19] MEDS: HYDRALAZINE HCL 50MG TABLET PO SCH ×4 (00:28→18:10)
[2019-01-19 04:00] VITALS: BP 133/77
[2019-01-19 07:51] LABS: CHLORIDE 111 mEq/L (98-107)
[2019-01-19] MEDS: THIAMINE HCL 100MG TABLET PO SCH (09:33)
[2019-01-19] MEDS: METOPROLOL TARTRATE 50MG TABLET PO SCH (09:33)
[2019-01-19] MEDS: AMLODIPINE 5MG TABLET PO SCH ×2 (09:33→21:34)
[2019-01-19] MEDS: FOLIC ACID 1MG TABLET PO SCH (09:33)
[2019-01-19] MEDS: MULTIVITAMINS,THER W-MINERALS TABLET PO SCH (09:33)
[2019-01-19] MEDS ORDERED: SODIUM CHLORIDE 0.9% 1,000 ML IV SCH (10:15)
[2019-01-19 12:00] VITALS: BP 172/85
[2019-01-19 12:04] LABS: HEMATOCRIT. 25.7 % (36.0-48.0); HEMOGLOBIN. 8.4 g/dL (12.0-16.0); MEAN CORPUSCULAR HEMOGLOBIN 28.1 pg (28.0-32.0); MEAN CORPUSCULAR VOLUME 86.2 fL (81.0-99.0); MEAN PLATELET VOLUME 9.1 fl (7.4-10.4); PLATELET 217 x1000/uL (130-400); RED BLOOD CELL COUNT 2.98 mill/uL (4.2-5.4); RED CELL DISTRIBUTION WIDTH 16.7 % (11.6-14.6)
[2019-01-19] MEDS: HYDRALAZINE 20MG/ML VIAL IV PRN (15:08)
[2019-01-19 16:00] VITALS: BP 169/84
[2019-01-19] MEDS: DEXT 5%/0.9% NACL 1,000 ML IV SCH (18:11)
[2019-01-19 20:20] VITALS: BP 138/74
[2019-01-19] MEDS: METOPROLOL TARTRATE 100MG TABLET PO SCH (21:47)
[2019-01-19] MEDS: METHOTREXATE SODIUM/PF 50 MG/2 ML VIAL IM NR (22:29)
[2019-01-20 00:02] VITALS: BP 142/71
[2019-01-20] MEDS: METHYLPREDNISOLONE SOD SUCC 40 MG/ML VIAL IV SCH ×4 (00:05→18:54)
[2019-01-20] MEDS: HYDRALAZINE HCL 50MG TABLET PO SCH ×4 (00:06→18:30)
[2019-01-20 04:00] VITALS: BP 133/71
[2019-01-20 06:11] LABS: BASOPHILS % 0.3 % (0.0-2.0); HEMATOCRIT. 24.8 % (36.0-48.0); HEMOGLOBIN. 8.1 g/dL (12.0-16.0); LYMPHOCYTES % 7.4 % (20.0-50.0); MEAN CORPUSCULAR VOLUME 85.6 fL (81.0-99.0); MEAN PLATELET VOLUME 8.7 fl (7.4-10.4); MONOCYTES % 4.3 % (2.0-8.0); PLATELET 196 x1000/uL (130-400); RED CELL DISTRIBUTION WIDTH 16.7 % (11.6-14.6)
[2019-01-20 07:34] LABS: CHLORIDE 112 mEq/L (98-107)
[2019-01-20 07:48] LABS: NUCLEATED RED BLOOD CELLS 2 /100 WBC; PLATELET ESTIMATE NORMAL
[2019-01-20 07:58] VITALS: BP 142/82
[2019-01-20] MEDS: AMLODIPINE 5MG TABLET PO SCH ×2 (08:49→22:12)
[2019-01-20] MEDS: MULTIVITAMINS,THER W-MINERALS TABLET PO SCH (08:50)
[2019-01-20] MEDS: THIAMINE HCL 100MG TABLET PO SCH (08:50)
[2019-01-20] MEDS: FOLIC ACID 1MG TABLET PO SCH (08:50)
[2019-01-20] MEDS: METOPROLOL TARTRATE 100MG TABLET PO SCH ×2 (08:51→22:19)
[2019-01-20 12:07] VITALS: BP 129/67
[2019-01-20 16:17] VITALS: BP 118/70
[2019-01-20] MEDS: DEXT 5%/0.9% NACL 1,000 ML IV SCH (16:28)
[2019-01-20 20:04] VITALS: BP 164/91
[2019-01-20] MEDS: ACETAMINOPHEN 325MG TABLET PO PRN (22:11)
[2019-01-21 00:17] VITALS: BP 147/82
[2019-01-21] MEDS: METHYLPREDNISOLONE SOD SUCC 40 MG/ML VIAL IV SCH ×5 (01:19→23:58)
[2019-01-21] MEDS: HYDRALAZINE HCL 50MG TABLET PO SCH ×5 (01:20→23:59)
[2019-01-21 04:31] VITALS: BP 154/89
[2019-01-21 06:18] LABS: HEMATOCRIT. 25.2 % (36.0-48.0); HEMOGLOBIN. 8.3 g/dL (12.0-16.0); MEAN CORPUSCULAR HEMOGLOBIN 28.6 pg (28.0-32.0); MEAN CORPUSCULAR VOLUME 86.6 fL (81.0-99.0); MEAN PLATELET VOLUME 9.4 fl (7.4-10.4); PLATELET 167 x1000/uL (130-400); RED BLOOD CELL COUNT 2.91 mill/uL (4.2-5.4); RED CELL DISTRIBUTION WIDTH 17.3 % (11.6-14.6)
[2019-01-21 06:33] LABS: CHLORIDE 113 mEq/L (98-107)
[2019-01-21 08:00] VITALS: BP 131/79
[2019-01-21] MEDS: AMLODIPINE 5MG TABLET PO SCH ×2 (09:16→20:40)
[2019-01-21] MEDS: MULTIVITAMINS,THER W-MINERALS TABLET PO SCH (09:16)
[2019-01-21] MEDS: METOPROLOL TARTRATE 100MG TABLET PO SCH ×2 (09:16→20:40)
[2019-01-21] MEDS: THIAMINE HCL 100MG TABLET PO SCH (09:17)
[2019-01-21] MEDS: FOLIC ACID 1MG TABLET PO SCH (09:17)
[2019-01-21 10:08] LABS: PLATELET ESTIMATE NORMAL
[2019-01-21 11:44] VITALS: BP 132/75
[2019-01-21 15:10] VITALS: BP 128/68
[2019-01-21] MEDS: DEXT 5%/0.9% NACL 1,000 ML IV SCH ×2 (18:05→23:59)
[2019-01-21 20:00] VITALS: BP 160/93
[2019-01-22] VITALS: BP 148/74
[2019-01-22 04:00] VITALS: BP 136/68
[2019-01-22] MEDS: METHYLPREDNISOLONE SOD SUCC 40 MG/ML VIAL IV SCH ×3 (06:05→17:34)
[2019-01-22] MEDS: HYDRALAZINE HCL 50MG TABLET PO SCH ×4 (06:05→23:21)
[2019-01-22 06:58] LABS: CHLORIDE 110 mEq/L (98-107)
[2019-01-22 07:10] LABS: HEMATOCRIT. 24.1 % (36.0-48.0); MEAN CORPUSCULAR HEMOGLOBIN 28.6 pg (28.0-32.0); MEAN CORPUSCULAR VOLUME 86.5 fL (81.0-99.0); MEAN PLATELET VOLUME 9.6 fl (7.4-10.4); PLATELET 146 x1000/uL (130-400); RED BLOOD CELL COUNT 2.78 mill/uL (4.2-5.4); RED CELL DISTRIBUTION WIDTH 17.3 % (11.6-14.6)
[2019-01-22 07:12] LABS: COMPLEMENT C3 28 mg/dL (82-167)
[2019-01-22 08:00] VITALS: BP 133/71
[2019-01-22] MEDS: MULTIVITAMINS,THER W-MINERALS TABLET PO SCH (08:52)
[2019-01-22] MEDS: FOLIC ACID 1MG TABLET PO SCH (08:53)
[2019-01-22] MEDS: METOPROLOL TARTRATE 100MG TABLET PO SCH ×2 (08:53→20:31)
[2019-01-22] MEDS: AMLODIPINE 5MG TABLET PO SCH ×2 (08:53→20:30)
[2019-01-22] MEDS: THIAMINE HCL 100MG TABLET PO SCH (08:53)
[2019-01-22 13:20] LABS: NUCLEATED RED BLOOD CELLS 1 /100 WBC
[2019-01-22 13:21] LABS: PLATELET ESTIMATE NORMAL
[2019-01-22] MEDS: DEXT 5%/0.9% NACL 1,000 ML IV SCH (14:31)
[2019-01-22 16:00] VITALS: BP 129/69
[2019-01-22 20:00] VITALS: BP 131/71
[2019-01-22] MEDS: METHYLPREDNISOLONE SOD SUCC 125 MG/2 ML VIAL IV SCH (23:21)
[2019-01-22] MEDS: AZATHIOPRINE 50MG TABLET PO SCH (23:21)
[2019-01-23] VITALS: BP 133/69
[2019-01-23 04:00] VITALS: BP 136/72
[2019-01-23] MEDS: METHYLPREDNISOLONE SOD SUCC 125 MG/2 ML VIAL IV SCH ×3 (05:51→18:39)
[2019-01-23] MEDS: HYDRALAZINE HCL 50MG TABLET PO SCH ×3 (05:51→18:28)
[2019-01-23] MEDS: DEXT 5%/0.9% NACL 1,000 ML IV SCH ×2 (05:57→21:42)
[2019-01-23 08:00] VITALS: BP 132/76
[2019-01-23] MEDS: AZATHIOPRINE 50MG TABLET PO SCH ×2 (08:31→18:28)
[2019-01-23] MEDS: MULTIVITAMINS,THER W-MINERALS TABLET PO SCH (08:31)
[2019-01-23] MEDS: THIAMINE HCL 100MG TABLET PO SCH (08:31)
[2019-01-23] MEDS: METOPROLOL TARTRATE 100MG TABLET PO SCH ×2 (08:32→20:56)
[2019-01-23] MEDS: AMLODIPINE 5MG TABLET PO SCH ×2 (08:32→20:56)
[2019-01-23] MEDS: FOLIC ACID 1MG TABLET PO SCH (08:32)
[2019-01-23 12:34] VITALS: BP 140/80
[2019-01-23 16:21] VITALS: BP 133/71
[2019-01-23 20:18] VITALS: BP 132/78
[2019-01-24] VITALS (7 sets, daily range): BP systolic 112–143; BP diastolic 61–81
[2019-01-24] MEDS: HYDRALAZINE HCL 50MG TABLET PO SCH ×5 (00:11→23:56)
[2019-01-24] MEDS: METHYLPREDNISOLONE SOD SUCC 125 MG/2 ML VIAL IV SCH ×5 (00:11→23:56)
[2019-01-24] MEDS: THIAMINE HCL 100MG TABLET PO SCH (09:02)
[2019-01-24] MEDS: AZATHIOPRINE 50MG TABLET PO SCH ×2 (09:02→17:51)
[2019-01-24] MEDS: MULTIVITAMINS,THER W-MINERALS TABLET PO SCH (09:02)
[2019-01-24] MEDS: METOPROLOL TARTRATE 100MG TABLET PO SCH ×2 (09:02→20:16)
[2019-01-24] MEDS: FOLIC ACID 1MG TABLET PO SCH (09:03)
[2019-01-24] MEDS: AMLODIPINE 5MG TABLET PO SCH ×2 (09:03→20:16)
[2019-01-24] MEDS: DEXT 5%/0.9% NACL 1,000 ML IV SCH (14:46)
[2019-01-24] MEDS: ACETAMINOPHEN 325MG TABLET PO PRN (16:13)
[2019-01-25 03:41] VITALS: BP 122/65
[2019-01-25] MEDS: DEXT 5%/0.9% NACL 1,000 ML IV SCH ×2 (06:11→22:48)
[2019-01-25] MEDS: METHYLPREDNISOLONE SOD SUCC 125 MG/2 ML VIAL IV SCH ×3 (06:11→18:44)
[2019-01-25] MEDS: HYDRALAZINE HCL 50MG TABLET PO SCH ×3 (06:11→18:43)
[2019-01-25 06:48] LABS: HEMATOCRIT. 21.2 % (36.0-48.0); HEMOGLOBIN. 7.1 g/dL (12.0-16.0); MEAN CORPUSCULAR HEMOGLOBIN 29.2 pg (28.0-32.0); MEAN PLATELET VOLUME 10.7 fl (7.4-10.4); PLATELET 140 x1000/uL (130-400); RED BLOOD CELL COUNT 2.44 mill/uL (4.2-5.4); RED CELL DISTRIBUTION WIDTH 17.1 % (11.6-14.6)
[2019-01-25 06:59] LABS: CHLORIDE 107 mEq/L (98-107)
[2019-01-25 08:00] VITALS: BP 127/73
[2019-01-25] MEDS: MULTIVITAMINS,THER W-MINERALS TABLET PO SCH (10:28)
[2019-01-25] MEDS: THIAMINE HCL 100MG TABLET PO SCH (10:28)
[2019-01-25] MEDS: AZATHIOPRINE 50MG TABLET PO SCH ×2 (10:28→18:44)
[2019-01-25] MEDS: METOPROLOL TARTRATE 100MG TABLET PO SCH ×2 (10:36→21:05)
[2019-01-25] MEDS: AMLODIPINE 5MG TABLET PO SCH ×2 (10:36→21:06)
[2019-01-25] MEDS: FOLIC ACID 1MG TABLET PO SCH (10:37)
[2019-01-25 12:00] VITALS: BP 127/65
[2019-01-25 13:43] LABS: PLATELET ESTIMATE NORMAL
[2019-01-25 16:00] VITALS: BP 136/65
[2019-01-25 20:00] VITALS: BP 139/77
[2019-01-26 00:40] VITALS: BP 137/78
[2019-01-26] MEDS: HYDRALAZINE HCL 50MG TABLET PO SCH ×5 (02:23→17:27)
[2019-01-26] MEDS: METHYLPREDNISOLONE SOD SUCC 125 MG/2 ML VIAL IV SCH ×4 (02:23→17:24)
[2019-01-26 04:00] VITALS: BP 150/70
[2019-01-26 06:09] LABS: CHLORIDE 108 mEq/L (98-107)
[2019-01-26 07:58] LABS: HEMATOCRIT. 21.5 % (36.0-48.0); MEAN CORPUSCULAR HEMOGLOBIN 27.9 pg (28.0-32.0); MEAN CORPUSCULAR VOLUME 87.6 fL (81.0-99.0); MEAN PLATELET VOLUME 10.5 fl (7.4-10.4); PLATELET 139 x1000/uL (130-400); RED BLOOD CELL COUNT 2.45 mill/uL (4.2-5.4); RED CELL DISTRIBUTION WIDTH 16.7 % (11.6-14.6)
[2019-01-26 08:00] VITALS: BP 131/60
[2019-01-26] MEDS: MULTIVITAMINS,THER W-MINERALS TABLET PO SCH (09:01)
[2019-01-26] MEDS: AZATHIOPRINE 50MG TABLET PO SCH ×2 (09:01→17:24)
[2019-01-26] MEDS: THIAMINE HCL 100MG TABLET PO SCH (09:01)
[2019-01-26] MEDS: FOLIC ACID 1MG TABLET PO SCH (09:01)
[2019-01-26] MEDS: METOPROLOL TARTRATE 100MG TABLET PO SCH ×2 (09:01→21:11)
[2019-01-26] MEDS: AMLODIPINE 5MG TABLET PO SCH ×2 (09:01→21:11)
[2019-01-26 09:36] LABS: HEMOGLOBIN. 6.8 g/dL (12.0-16.0)
[2019-01-26 12:00] VITALS: BP 139/61
[2019-01-26 13:27] LABS: PLATELET ESTIMATE NORMAL
[2019-01-26] MEDS: DEXT 5%/0.9% NACL 1,000 ML IV SCH (14:47)
[2019-01-26 16:00] VITALS: BP 133/64
[2019-01-26 20:00] VITALS: BP 130/66
[2019-01-27] VITALS (8 sets, daily range): BP systolic 130–144; BP diastolic 70–84
[2019-01-27] MEDS: HYDRALAZINE HCL 50MG TABLET PO SCH ×4 (00:49→17:25)
[2019-01-27] MEDS: METHYLPREDNISOLONE SOD SUCC 125 MG/2 ML VIAL IV SCH ×5 (00:49→23:56)
[2019-01-27] MEDS: DEXT 5%/0.9% NACL 1,000 ML IV SCH ×2 (03:27→18:45)
[2019-01-27 07:06] LABS: HEMATOCRIT. 21.8 % (36.0-48.0); MEAN CORPUSCULAR HEMOGLOBIN 28.3 pg (28.0-32.0); MEAN CORPUSCULAR VOLUME 88.2 fL (81.0-99.0); MEAN PLATELET VOLUME 9.4 fl (7.4-10.4); PLATELET 136 x1000/uL (130-400); RED BLOOD CELL COUNT 2.47 mill/uL (4.2-5.4); RED CELL DISTRIBUTION WIDTH 16.9 % (11.6-14.6)
[2019-01-27 08:41] LABS: CHLORIDE 108 mEq/L (98-107)
[2019-01-27] MEDS: METOPROLOL TARTRATE 100MG TABLET PO SCH ×2 (10:15→22:27)
[2019-01-27] MEDS: AMLODIPINE 5MG TABLET PO SCH ×2 (10:16→22:28)
[2019-01-27] MEDS: FOLIC ACID 1MG TABLET PO SCH (10:16)
[2019-01-27] MEDS: AZATHIOPRINE 50MG TABLET PO SCH ×2 (10:16→17:26)
[2019-01-27] MEDS: THIAMINE HCL 100MG TABLET PO SCH (10:16)
[2019-01-27] MEDS: MULTIVITAMINS,THER W-MINERALS TABLET PO SCH (10:16)
[2019-01-27 16:30] LABS: PLATELET ESTIMATE NORMAL
[2019-01-27 20:52] LABS: HEMATOCRIT 26.7 % (36.0-48.0); MEAN CORPUSCULAR HEMOGLOBIN 29.2 pg (28.0-32.0); MEAN CORPUSCULAR VOLUME 86.9 fL (81.0-99.0); PLATELET 136 x1000/uL (130-400); RED BLOOD CELL COUNT 3.07 mill/uL (4.2-5.4); RED CELL DISTRIBUTION WIDTH 15.8 % (11.6-14.6)
[2019-01-28] VITALS (7 sets, daily range): BP systolic 124–132; BP diastolic 65–75
[2019-01-28] MEDS: HYDRALAZINE HCL 50MG TABLET PO SCH ×4 (00:56→16:39)
[2019-01-28] MEDS: METHYLPREDNISOLONE SOD SUCC 125 MG/2 ML VIAL IV SCH ×4 (05:14→18:38)
[2019-01-28 06:26] LABS: HEMATOCRIT. 25.7 % (36.0-48.0); HEMOGLOBIN. 8.5 g/dL (12.0-16.0); MEAN CORPUSCULAR HEMOGLOBIN 29.1 pg (28.0-32.0); MEAN PLATELET VOLUME 9.1 fl (7.4-10.4); PLATELET 131 x1000/uL (130-400); RED BLOOD CELL COUNT 2.92 mill/uL (4.2-5.4); RED CELL DISTRIBUTION WIDTH 16.2 % (11.6-14.6)
[2019-01-28 06:40] LABS: CHLORIDE 106 mEq/L (98-107)
[2019-01-28] MEDS: DEXT 5%/0.9% NACL 1,000 ML IV SCH (06:59)
[2019-01-28] MEDS: AMLODIPINE 5MG TABLET PO SCH ×2 (08:02→20:11)
[2019-01-28] MEDS: THIAMINE HCL 100MG TABLET PO SCH (08:02)
[2019-01-28] MEDS: FOLIC ACID 1MG TABLET PO SCH (08:02)
[2019-01-28] MEDS: AZATHIOPRINE 50MG TABLET PO SCH ×2 (08:02→16:39)
[2019-01-28] MEDS: MULTIVITAMINS,THER W-MINERALS TABLET PO SCH (08:03)
[2019-01-28] MEDS: METOPROLOL TARTRATE 100MG TABLET PO SCH ×2 (08:03→20:12)
[2019-01-28 15:41] LABS: PLATELET ESTIMATE NORMAL
[2019-01-28] MEDS: ACETAMINOPHEN 325MG TABLET PO PRN (17:14)
[2019-01-29 00:28] LABS: HEMATOCRIT. 25.4 % (36.0-48.0); HEMOGLOBIN. 8.4 g/dL (12.0-16.0); MEAN CORPUSCULAR HEMOGLOBIN 29.3 pg (28.0-32.0); MEAN PLATELET VOLUME 9.2 fl (7.4-10.4); PLATELET 129 x1000/uL (130-400); RED BLOOD CELL COUNT 2.88 mill/uL (4.2-5.4); RED CELL DISTRIBUTION WIDTH 16.1 % (11.6-14.6)
[2019-01-29] MEDS: HYDRALAZINE HCL 50MG TABLET PO SCH ×4 (00:42→18:45)
[2019-01-29] MEDS: METHYLPREDNISOLONE SOD SUCC 125 MG/2 ML VIAL IV SCH ×5 (00:43→23:52)
[2019-01-29] MEDS: DEXT 5%/0.9% NACL 1,000 ML IV SCH ×2 (00:43→16:57)
[2019-01-29 03:54] VITALS: BP 129/78
[2019-01-29 04:27] LABS: PLATELET ESTIMATE NORMAL
[2019-01-29 07:20] LABS: HEMATOCRIT. 26.1 % (36.0-48.0); HEMOGLOBIN. 8.6 g/dL (12.0-16.0); MEAN CORPUSCULAR HEMOGLOBIN 29.1 pg (28.0-32.0); MEAN CORPUSCULAR VOLUME 88.3 fL (81.0-99.0); MEAN PLATELET VOLUME 8.9 fl (7.4-10.4); PLATELET 127 x1000/uL (130-400); RED BLOOD CELL COUNT 2.95 mill/uL (4.2-5.4); RED CELL DISTRIBUTION WIDTH 16.7 % (11.6-14.6)
[2019-01-29 08:00] VITALS: BP 127/68
[2019-01-29 08:23] LABS: CHLORIDE 103 mEq/L (98-107)
[2019-01-29] MEDS: AZATHIOPRINE 50MG TABLET PO SCH ×2 (09:01→16:28)
[2019-01-29] MEDS: AMLODIPINE 5MG TABLET PO SCH ×2 (09:01→21:10)
[2019-01-29] MEDS: ACETAMINOPHEN 325MG TABLET PO PRN ×2 (09:02→16:28)
[2019-01-29] MEDS: METOPROLOL TARTRATE 100MG TABLET PO SCH ×2 (09:02→21:10)
[2019-01-29 11:10] LABS: PLATELET ESTIMATE SLIGHTLY DECREASED
[2019-01-29 12:00] VITALS: BP 119/65
[2019-01-29 16:00] VITALS: BP 131/76
[2019-01-29 20:24] VITALS: BP 128/74
[2019-01-30 00:29] VITALS: BP 129/72
[2019-01-30] MEDS: HYDRALAZINE HCL 50MG TABLET PO SCH ×3 (00:33→13:31)
[2019-01-30 04:00] VITALS: BP 146/75
[2019-01-30] MEDS: METHYLPREDNISOLONE SOD SUCC 125 MG/2 ML VIAL IV SCH ×2 (06:24→13:31)
[2019-01-30 06:34] LABS: HEMATOCRIT. 25.9 % (36.0-48.0); HEMOGLOBIN. 8.5 g/dL (12.0-16.0); MEAN CORPUSCULAR HEMOGLOBIN 29.3 pg (28.0-32.0); MEAN CORPUSCULAR VOLUME 89.6 fL (81.0-99.0); MEAN PLATELET VOLUME 8.9 fl (7.4-10.4); PLATELET 134 x1000/uL (130-400); RED BLOOD CELL COUNT 2.89 mill/uL (4.2-5.4); RED CELL DISTRIBUTION WIDTH 16.8 % (11.6-14.6)
[2019-01-30 06:45] LABS: CHLORIDE 103 mEq/L (98-107)
[2019-01-30 07:49] VITALS: BP 119/51
[2019-01-30] MEDS: DEXT 5%/0.9% NACL 1,000 ML IV SCH (08:21)
[2019-01-30 09:43] LABS: PLATELET ESTIMATE NORMAL
[2019-01-30] MEDS: METOPROLOL TARTRATE 100MG TABLET PO SCH (09:52)
[2019-01-30] MEDS: AZATHIOPRINE 50MG TABLET PO SCH (09:52)
[2019-01-30] MEDS: ACETAMINOPHEN 325MG TABLET PO PRN (09:58)
[2019-01-30 11:15] VITALS: BP 117/64
[2019-01-30 13:51] VITALS: BP 117/64
[2019-01-30] MEDS ORDERED: METO100T16 PO (14:26)
[2019-01-30] MEDS ORDERED: METH125V12 IV (14:26)
[2019-01-30] MEDS ORDERED: AZAT50TA24 PO (14:26)
[2019-01-30] MEDS ORDERED: HYDR-4135 PO (14:26)
[2019-01-30 17:11] LABS: ANTI-DNA DOUBLE STRANDED QUANT > 300 IU/mL (0-9)
[2019-01-31 09:06] LABS: COMPLEMENT C3 36 mg/dL (82-167)
[2019-01-31 13:06] LABS: ANTI-MYELOPEROXIDASE AB < 9.0 U/mL (0.0-9.0); ANTI-PROTEINASE 3 ABS < 3.5 U/mL (0.0-3.5)
[2019-02-03 13:07] LABS: ATYPICAL P-ANCA <1:20 titer (Neg:<1:20); CYTOPLASMIC C-ANCA <1:20 titer (Neg:<1:20)
== END 2019-01-30 15:53 | DRG 871 ==
LOC: ER 12:53 → 8WST 18:25 → ENRESERV 23:19 → 5EST 01-04 22:41 → 8WST 01-09 23:05 → 6WST 01-10 00:08
PROVIDERS: ADMIT Internal Medicine; ATTEND Internal Medicine
PROC: 4A10X4Z Monitoring of Central Nervous Electrical Activity, External Approach (ICD-10-PCS; 2018-12-31)
PROC: 009U3ZX Drainage of Spinal Canal, Percutaneous Approach, Diagnostic (ICD-10-PCS; 2019-01-03)
PROC: B01BZZZ Fluoroscopy of Spinal Cord (ICD-10-PCS; 2019-01-03)
PROC: 30233N1 Transfusion of Nonautologous Red Blood Cells into Peripheral Vein, Percutaneous Approach (ICD-10-PCS; principal; 2019-01-16)
DX: A41.1 Sepsis due to other specified staphylococcus (principal); N17.0 Acute kidney failure with tubular necrosis; E43 Unspecified severe protein-calorie malnutrition; G92 Toxic encephalopathy; E87.0 Hyperosmolality and hypernatremia; N39.0 Urinary tract infection, site not specified; D68.59 Other primary thrombophilia; F84.0 Autistic disorder; M31.8 Other specified necrotizing vasculopathies; E87.1 Hypo-osmolality and hyponatremia; D59.9 Acquired hemolytic anemia, unspecified; I82.612 Acute embolism and thrombosis of superficial veins of left upper extremity; E87.8 Other disorders of electrolyte and fluid balance, not elsewhere classified; B96.20 Unspecified Escherichia coli [E. coli] as the cause of diseases classified elsewhere; J45.909 Unspecified asthma, uncomplicated; D63.8 Anemia in other chronic diseases classified elsewhere; N18.9 Chronic kidney disease, unspecified; E87.6 Hypokalemia; D89.2 Hypergammaglobulinemia, unspecified; E83.42 Hypomagnesemia; K75.4 Autoimmune hepatitis; M32.9 Systemic lupus erythematosus, unspecified; L89.150 Pressure ulcer of sacral region, unstageable; L89.210 Pressure ulcer of right hip, unstageable; I12.9 Hypertensive chronic kidney disease with stage 1 through stage 4 chronic kidney disease, or unspecified chronic kidney disease; M19.90 Unspecified osteoarthritis, unspecified site; Z88.8 Allergy status to other drugs, medicaments and biological substances; Z68.29 Body mass index [BMI] 29.0-29.9, adult
CPT/HCPCS: 36415; 62270; 70551; 71045; 73502; 73560; 73630; 77003; 80048; 80076; 80305; 80307; 80320; 82085; 82140; 82164; 82175; 82330; 82550; 82595; 82607; 82728; 82746; 82784; 82945; 82962; 83036; 83516; 83520; 83540; 83550; 83655; 83735; 83825; 83880; 84134; 84145; 84155; 84157; 84165; 84439; 84443; 84481; 84484; 84703; 85014; 85018; 85027; 85044; 85049; 85384; 85651; 86038; 86160; 86200; 86225; 86235; 86256; 86431; 86592; 86635; 86705; 86709; 86780; 86803; 86850; 86880; 86900; 86920; 87070; 87077; 87102; 87186; 87340; 87529; 87802; 87899; 92610; 93005; 93970; 93971; 96374; 97110; 97162; 97164; 97167; 97530; 97535; 99285; A6261; C1893; J0290; J0360; J0692; J1650; J2270; J2405; J2920; J2930; J3475; J3480; J3490; J7030; J7040; J7042; J7050; J7060; J7500; J9260; P9016; P9021; G0480

== ENCOUNTER 2019-09-28 10:13 | Inpatient (IN) | payer OTHER, MEDICAID ==
[~2019-09-28] VITALS: Ht 152.4 cm; Wt 59.4 kg
[~2019-09-28 10:13] MED LIST: AZAT50TA24 PO; HYDR-4135 PO; METH125V12 IV; METO100T16 PO
[2019-09-28] MEDS ORDERED: CEFTRIAXONE 1 G PREMIX 50 ML IV ONE ×2 (10:45→17:45)
[2019-09-28] MEDS ORDERED: SODIUM CHLORIDE 0.9% 1000ML BAG (SEPSIS BOLUS) IV ONE (10:45)
[2019-09-28 15:12] LABS: BASOPHILS % 0.1 % (0.0-2.0); EOSINOPHILS % 0.1 % (0.0-5.0); HEMOGLOBIN. 7.6 g/dL (12.0-16.0); LYMPHOCYTES % 13.9 % (20.0-50.0); MEAN CORPUSCULAR HEMOGLOBIN 26.5 pg (28.0-32.0); MEAN CORPUSCULAR VOLUME 83.4 fL (81.0-99.0); MEAN PLATELET VOLUME 8.4 fl (7.4-10.4); MONOCYTES % 5.9 % (2.0-8.0); PLATELET 433 x1000/uL (130-400); RED BLOOD CELL COUNT 2.88 mill/uL (4.2-5.4); RED CELL DISTRIBUTION WIDTH 17.5 % (11.6-14.6)
[2019-09-28 15:17] LABS: CHLORIDE 104 mEq/L (98-107)
[2019-09-28 15:19] LABS: INR 1.1; PROTHROMBIN TIME 11.7 sec (9.6-11.0)
[2019-09-28 15:24] LABS: ETHANOL BLOOD < 10 mg/dL
[2019-09-28 15:36] LABS: HCG SCREEN NEGATIVE
[2019-09-28] MEDS ORDERED: VANCOMYCIN 1 G PREMIX 200 ML IV SCH (16:00)
[2019-09-28] MEDS ORDERED: POTASSIUM CHLORIDE INJ 40 MEQ in DEXT 5% WATER 250 ML IV ONE (16:00)
[2019-09-28 18:10] LABS: CLARITY URINE TURBID (CLEAR); COLOR URINE YELLOW (YELLOW); KETONES URINE 2+ (NEGATIVE); LEUKOCYTE ESTERASE URINE 3+ (NEGATIVE); NITRITE URINE NEGATIVE (NEGATIVE); OCCULT BLOOD URINE 2+ (NEGATIVE); PH URINE 6.5 (4.5-8.0); PROTEIN URINE 2+ (NEGATIVE); SPECIFIC GRAVITY URINE 1.016 (1.005-1.030)
[2019-09-28 19:50] LABS: *BARBITURATES SCREEN URINE NEGATIVE (NEGATIVE); *BENZODIAZEPINES SCREEN URINE NEGATIVE (NEGATIVE)
[2019-09-28 19:51] LABS: *AMPHETAMINES SCREEN URINE NEGATIVE (NEGATIVE); *COCAINE SCREEN URINE NEGATIVE (NEGATIVE); CANNABINOID URINE SCREEN NEGATIVE (NEGATIVE); METHADONE URINE SCREEN NEGATIVE (NEGATIVE); OPIATES URINE SCREEN NEGATIVE (NEGATIVE); PHENCYCLIDINE URINE SCREEN NEGATIVE (NEGATIVE)
[2019-09-28 21:28] LABS: HEMATOCRIT 22.3 % (36.0-48.0); HEMOGLOBIN 7.3 g/dL (12.0-16.0)
[2019-09-28 22:00] VITALS: BP 150/70
[2019-09-28] MEDS ORDERED: ACETAMINOPHEN 325MG TABLET PO PRN (22:30)
[2019-09-28] MEDS ORDERED: CLONIDINE 0.1MG TABLET PO PRN (22:30)
[2019-09-28] MEDS ORDERED: ONDANSETRON HCL 4MG/2ML INJ IV PRN (22:30)
[2019-09-28] MEDS ORDERED: IPRATROPIUM/ALBUTEROL 0.5-3(2.5)MG/3ML NEB NEB PRN (22:30)
[2019-09-28] MEDS: METHYLPREDNISOLONE SOD SUCC 125 MG/2 ML VIAL IV SCH (23:14)
[2019-09-29] VITALS (7 sets, daily range): BP systolic 119–166; BP diastolic 71–102
[2019-09-29] MEDS: MEROPENEM 1,000 MG in SODIUM CHLORIDE 0.9% 100 ML IV SCH ×2 (00:35→09:27)
[2019-09-29] MEDS: DEXT 5%/0.45% NACL KCL 40MEQ/L 1,000 ML IV SCH ×2 (00:35→21:15)
[2019-09-29] MEDS: IPRATROPIUM/ALBUTEROL 0.5-3(2.5)MG/3ML NEB HHN SCH ×3 (00:58→16:00)
[2019-09-29] MEDS ORDERED: ACETAMINOPHEN 650MG SUPP PR PRN (01:00)
[2019-09-29] MEDS: METHYLPREDNISOLONE SOD SUCC 125 MG/2 ML VIAL IV SCH ×5 (03:00→23:52)
[2019-09-29 06:35] LABS: CHLORIDE 111 mEq/L (98-107)
[2019-09-29 06:45] LABS: CREATINE KINASE 94 IU/L (26-192)
[2019-09-29 07:10] LABS: BASOPHILS % 0.3 % (0.0-2.0); HEMATOCRIT. 25.2 % (36.0-48.0); LYMPHOCYTES % 7.2 % (20.0-50.0); MEAN CORPUSCULAR HEMOGLOBIN 26.8 pg (28.0-32.0); MEAN CORPUSCULAR VOLUME 84.3 fL (81.0-99.0); MEAN PLATELET VOLUME 8.8 fl (7.4-10.4); MONOCYTES % 2.9 % (2.0-8.0); NEUTROPHILS % 89.6 % (40.0-76.0); PLATELET 369 x1000/uL (130-400); RED BLOOD CELL COUNT 2.99 mill/uL (4.2-5.4); RED CELL DISTRIBUTION WIDTH 17.9 % (11.6-14.6)
[2019-09-29] MEDS: METOPROLOL TARTRATE 50MG TABLET PO SCH ×2 (09:00→21:15)
[2019-09-29] MEDS: FAMOTIDINE 20MG/2ML VIAL IV SCH ×2 (09:00→21:15)
[2019-09-29] MEDS ORDERED: VANCOMYCIN 750 MG PREMIX 150 ML IV SCH (10:00)
[2019-09-29 12:19] LABS: BG BASE EXCESS 0.7 mmol/L (-2.0-2.0); BG CARBOXYHEMOGLOBIN 0.6 % (0.5-1.5); BG DEOXYHEMOGLOBIN 2.2 % (0.0-5.0); BG FRACTION INSPIRED OXYGEN 21; BG HCO3 ACT 24.5 mmol/L (22.0-26.0); BG METHEMOGLOBIN 0.3 % (0.0-1.5); BG OXYGEN SATURATION 97.8 % (92.0-98.5); BG OXYHEMOGLOBIN 96.9 % (94.0-97.0); BG PCO2 35.7 mmHg (35.0-45.0); BG PH 7.455 (7.350-7.450); BG PO2 103.4 mmHg (75.0-100.0); BG SAMPLE SITE RIGHT RADIAL; BG TOTAL HEMOGLOBIN 7.8 g/dL (12.0-18.0); BG VENT MODE ROOM AIR
[2019-09-29] MEDS ORDERED: VANCOMYCIN 1 G PREMIX 200 ML IV SCH (18:00)
[2019-09-29] MEDS ORDERED: MEROPENEM 500MG in NORMAL SALINE 50ML IV SCH (18:00)
[2019-09-29] MEDS ORDERED: GENTAMICIN 100MG PREMIX 50 ML IV SCH (21:00)
[2019-09-29] MEDS: AMPICILLIN 2,000 MG in SODIUM CHLORIDE 0.9% 100 ML IV SCH (21:14)
[2019-09-29] MEDS: ATORVASTATIN CALCIUM 10MG TABLET PO SCH (21:15)
[2019-09-29 22:38] LABS: VITAMIN B12 SERUM 660 pg/mL (211-911)
[2019-09-29] MEDS ORDERED: METHYLPREDNISOLONE SOD SUCC 125 MG/2 ML VIAL IV SCH (23:00)
[2019-09-30] VITALS (11 sets, daily range): BP systolic 114–180; BP diastolic 63–90
[2019-09-30] MEDS: IPRATROPIUM/ALBUTEROL 0.5-3(2.5)MG/3ML NEB HHN SCH ×2 (00:56→13:30)
[2019-09-30] MEDS: AMPICILLIN 2,000 MG in SODIUM CHLORIDE 0.9% 100 ML IV SCH ×4 (03:36→22:00)
[2019-09-30] MEDS: DEXT 5%/0.45% NACL KCL 40MEQ/L 1,000 ML IV SCH ×3 (05:00→11:36)
[2019-09-30] MEDS: METHYLPREDNISOLONE SOD SUCC 125 MG/2 ML VIAL IV SCH ×3 (05:31→17:43)
[2019-09-30 06:38] LABS: CHLORIDE 113 mEq/L (98-107)
[2019-09-30 06:47] LABS: CREATINE KINASE 46 IU/L (26-192); T4 FREE 1.54 ng/dL (0.76-1.46)
[2019-09-30 07:15] LABS: HEMATOCRIT. 21.6 % (36.0-48.0); MEAN CORPUSCULAR HEMOGLOBIN 26.8 pg (28.0-32.0); MEAN CORPUSCULAR VOLUME 85.6 fL (81.0-99.0); MEAN PLATELET VOLUME 9.2 fl (7.4-10.4); PLATELET 348 x1000/uL (130-400); RED BLOOD CELL COUNT 2.52 mill/uL (4.2-5.4); RED CELL DISTRIBUTION WIDTH 17.7 % (11.6-14.6)
[2019-09-30 07:26] LABS: HEMOGLOBIN. 6.8 g/dL (12.0-16.0)
[2019-09-30 08:07] LABS: COMPLEMENT C3 54 mg/dL (82-167)
[2019-09-30] MEDS: METOPROLOL TARTRATE 50MG TABLET PO SCH ×2 (08:45→21:13)
[2019-09-30] MEDS: FAMOTIDINE 20MG/2ML VIAL IV SCH ×2 (08:45→21:14)
[2019-09-30] MEDS ORDERED: ASPIRIN 81MG TABLET PO SCH (09:00)
[2019-09-30] MEDS ORDERED: CEFTRIAXONE 2 G PREMIX 50 ML IV SCH (15:15)
[2019-09-30] MEDS: HYDRALAZINE 20MG/ML VIAL IV PRN (19:26)
[2019-09-30 20:36] LABS: PLATELET ESTIMATE NORMAL
[2019-09-30] MEDS: CEFTRIAXONE 2 G in DEXTROSE 5% WATER 50 ML IV SCH (21:05)
[2019-09-30] MEDS: ATORVASTATIN CALCIUM 10MG TABLET PO SCH (21:05)
[2019-09-30] MEDS: AMLODIPINE 5MG TABLET PO SCH (21:13)
[2019-09-30] MEDS: LOSARTAN POTASSIUM 50 MG TABLET PO SCH (21:14)
[2019-09-30 23:51] LABS: HEMATOCRIT 25.3 % (36.0-48.0); HEMOGLOBIN 8.1 g/dL (12.0-16.0)
[2019-10-01] VITALS (9 sets, daily range): BP systolic 94–158; BP diastolic 63–96
[2019-10-01 00:59] LABS: HAPTOGLOBIN 111 mg/dL (30-200)
[2019-10-01] MEDS: IPRATROPIUM/ALBUTEROL 0.5-3(2.5)MG/3ML NEB HHN SCH ×3 (01:30→16:21)
[2019-10-01] MEDS: AMPICILLIN 2,000 MG in SODIUM CHLORIDE 0.9% 100 ML IV SCH ×4 (02:00→19:42)
[2019-10-01] MEDS: METHYLPREDNISOLONE SOD SUCC 125 MG/2 ML VIAL IV SCH ×3 (05:00→18:32)
[2019-10-01] MEDS: CEFTRIAXONE 2 G in DEXTROSE 5% WATER 50 ML IV SCH (06:30)
[2019-10-01 07:04] LABS: HEMATOCRIT. 26.2 % (36.0-48.0); HEMOGLOBIN. 8.5 g/dL (12.0-16.0); MEAN CORPUSCULAR HEMOGLOBIN 27.9 pg (28.0-32.0); MEAN CORPUSCULAR VOLUME 86.4 fL (81.0-99.0); MEAN PLATELET VOLUME 8.7 fl (7.4-10.4); PLATELET 382 x1000/uL (130-400); RED BLOOD CELL COUNT 3.04 mill/uL (4.2-5.4); RED CELL DISTRIBUTION WIDTH 17.3 % (11.6-14.6)
[2019-10-01] MEDS: DEXT 5%/0.45% NACL KCL 40MEQ/L 1,000 ML IV SCH ×2 (07:36→18:06)
[2019-10-01 07:45] LABS: CHLORIDE 111 mEq/L (98-107)
[2019-10-01] MEDS: FAMOTIDINE 20MG/2ML VIAL IV SCH ×2 (08:37→22:26)
[2019-10-01] MEDS: METOPROLOL TARTRATE 50MG TABLET PO SCH ×2 (08:38→22:27)
[2019-10-01 09:10] LABS: G6PD RBC 2.53 x10E6/uL (3.77-5.28)
[2019-10-01 13:06] LABS: G6PD QUANTITATIVE 596 (146-376)
[2019-10-01 13:46] LABS: PLATELET ESTIMATE NORMAL
[2019-10-01 15:08] LABS: RNP ANTIBODY > 8.0 AI (0.0-0.9); SMITH ANTIBODY > 8.0 AI (0.0-0.9)
[2019-10-01] MEDS: GENTAMICIN SULFATE IV SCH (18:32)
[2019-10-01] MEDS: SODIUM CHLORIDE 0.9% IV SCH (18:32)
[2019-10-01] MEDS: LOSARTAN POTASSIUM 50 MG TABLET PO SCH (21:00)
[2019-10-01] MEDS: AMLODIPINE 5MG TABLET PO SCH (22:27)
[2019-10-01] MEDS: ATORVASTATIN CALCIUM 10MG TABLET PO SCH (22:27)
[2019-10-02] VITALS: BP 143/95
[2019-10-02] MEDS: IPRATROPIUM/ALBUTEROL 0.5-3(2.5)MG/3ML NEB HHN SCH ×3 (00:43→16:52)
[2019-10-02] MEDS: METHYLPREDNISOLONE SOD SUCC 125 MG/2 ML VIAL IV SCH ×5 (02:34→22:53)
[2019-10-02] MEDS: SODIUM CHLORIDE 0.9% IV SCH ×3 (02:34→16:52)
[2019-10-02] MEDS: GENTAMICIN SULFATE IV SCH ×3 (02:34→16:52)
[2019-10-02] MEDS: AMPICILLIN 2,000 MG in SODIUM CHLORIDE 0.9% 100 ML IV SCH ×4 (02:34→20:04)
[2019-10-02 04:00] VITALS: BP 135/77
[2019-10-02] MEDS: DEXT 5%/0.45% NACL KCL 40MEQ/L 1,000 ML IV SCH ×2 (04:44→14:11)
[2019-10-02 07:16] LABS: HEMATOCRIT. 28.9 % (36.0-48.0); HEMOGLOBIN. 9.4 g/dL (12.0-16.0); MEAN CORPUSCULAR HEMOGLOBIN 28.1 pg (28.0-32.0); MEAN CORPUSCULAR VOLUME 86.6 fL (81.0-99.0); MEAN PLATELET VOLUME 8.6 fl (7.4-10.4); PLATELET 400 x1000/uL (130-400); RED BLOOD CELL COUNT 3.33 mill/uL (4.2-5.4); RED CELL DISTRIBUTION WIDTH 17.5 % (11.6-14.6)
[2019-10-02 07:24] LABS: CHLORIDE 110 mEq/L (98-107)
[2019-10-02 08:00] VITALS: BP 158/92
[2019-10-02] MEDS: FAMOTIDINE 20MG/2ML VIAL IV SCH ×2 (08:36→21:55)
[2019-10-02] MEDS: METOPROLOL TARTRATE 50MG TABLET PO SCH ×2 (08:36→21:56)
[2019-10-02 08:55] LABS: PLATELET ESTIMATE NORMAL
[2019-10-02] MEDS ORDERED: LIDOCAINE HCL 1% 20ML VIAL (Pyxis) INJ ONE (09:02)
[2019-10-02] MEDS: HYDROXYCHLOROQUINE SULFATE 200MG TABLET PO SCH (10:52)
[2019-10-02 12:00] VITALS: BP 163/99
[2019-10-02 13:10] LABS: ACTIN (SMOOTH MUSCLE) ANTIBODY 46 Units (0-19); ANA IFA Negative (.); DRVVT LA 41.9 sec (0.0-47.0); LUPUS ANTICOAG INTERPRETATION Comment: (.); PTT-LA 30.6 sec (0.0-51.9)
[2019-10-02] MEDS: HYDRALAZINE 20MG/ML VIAL IV PRN (15:23)
[2019-10-02 16:00] VITALS: BP 131/79
[2019-10-02] MEDS: HYDRALAZINE HCL 25MG TABLET PO SCH ×2 (16:52→21:57)
[2019-10-02 20:00] VITALS: BP 148/87
[2019-10-02] MEDS: ATORVASTATIN CALCIUM 10MG TABLET PO SCH (21:56)
[2019-10-02] MEDS: AMLODIPINE 5MG TABLET PO SCH (21:57)
[2019-10-02] MEDS: LOSARTAN POTASSIUM 50 MG TABLET PO SCH (22:53)
[2019-10-03] VITALS (9 sets, daily range): BP systolic 116–156; BP diastolic 68–92
[2019-10-03] MEDS: IPRATROPIUM/ALBUTEROL 0.5-3(2.5)MG/3ML NEB HHN SCH ×4 (00:26→23:52)
[2019-10-03] MEDS: DEXT 5%/0.45% NACL KCL 40MEQ/L 1,000 ML IV SCH ×3 (01:33→21:29)
[2019-10-03] MEDS: AMPICILLIN 2,000 MG in SODIUM CHLORIDE 0.9% 100 ML IV SCH ×4 (02:37→21:29)
[2019-10-03] MEDS: GENTAMICIN SULFATE IV SCH ×3 (04:30→16:35)
[2019-10-03] MEDS: SODIUM CHLORIDE 0.9% IV SCH ×3 (04:30→16:35)
[2019-10-03] MEDS: METHYLPREDNISOLONE SOD SUCC 125 MG/2 ML VIAL IV SCH ×4 (05:19→22:42)
[2019-10-03] MEDS: HYDRALAZINE HCL 25MG TABLET PO SCH ×3 (05:54→22:42)
[2019-10-03 07:17] LABS: HEMATOCRIT. 26.1 % (36.0-48.0); HEMOGLOBIN. 8.6 g/dL (12.0-16.0); MEAN CORPUSCULAR HEMOGLOBIN 28.3 pg (28.0-32.0); MEAN CORPUSCULAR VOLUME 86.3 fL (81.0-99.0); MEAN PLATELET VOLUME 8.3 fl (7.4-10.4); PLATELET 413 x1000/uL (130-400); RED BLOOD CELL COUNT 3.02 mill/uL (4.2-5.4); RED CELL DISTRIBUTION WIDTH 17.8 % (11.6-14.6)
[2019-10-03 07:41] LABS: CHLORIDE 109 mEq/L (98-107)
[2019-10-03] MEDS: HYDROXYCHLOROQUINE SULFATE 200MG TABLET PO SCH (08:32)
[2019-10-03] MEDS: METOPROLOL TARTRATE 50MG TABLET PO SCH ×2 (08:32→22:41)
[2019-10-03] MEDS: FAMOTIDINE 20MG/2ML VIAL IV SCH ×2 (08:32→22:41)
[2019-10-03 09:51] LABS: NUCLEATED RED BLOOD CELLS 1 /100 WBC
[2019-10-03 09:52] LABS: PLATELET ESTIMATE INCREASED
[2019-10-03] MEDS ORDERED: IOHEXOL-350 100 ML BOTTLE ONE (11:19)
[2019-10-03] MEDS: LOSARTAN POTASSIUM 50 MG TABLET PO SCH (22:41)
[2019-10-03] MEDS: ATORVASTATIN CALCIUM 10MG TABLET PO SCH (22:41)
[2019-10-03] MEDS: AMLODIPINE 5MG TABLET PO SCH (22:42)
[2019-10-04] VITALS (17 sets, daily range): BP systolic 115–159; BP diastolic 71–95
[2019-10-04] MEDS: AMPICILLIN 2,000 MG in SODIUM CHLORIDE 0.9% 100 ML IV SCH ×4 (03:24→21:35)
[2019-10-04 03:41] LABS: CHLORIDE 110 mEq/L (98-107)
[2019-10-04 03:46] LABS: HEMATOCRIT. 25.4 % (36.0-48.0); HEMOGLOBIN. 8.3 g/dL (12.0-16.0); MEAN CORPUSCULAR VOLUME 86.1 fL (81.0-99.0); PLATELET 376 x1000/uL (130-400); RED BLOOD CELL COUNT 2.95 mill/uL (4.2-5.4); RED CELL DISTRIBUTION WIDTH 17.6 % (11.6-14.6)
[2019-10-04 03:48] LABS: GENTAMICIN TROUGH 1.1 ug/mL (<2.0)
[2019-10-04] MEDS: SODIUM CHLORIDE 0.9% IV SCH ×2 (04:00→17:59)
[2019-10-04] MEDS: GENTAMICIN SULFATE IV SCH ×2 (04:00→17:59)
[2019-10-04] MEDS: DEXT 5%/0.45% NACL KCL 40MEQ/L 1,000 ML IV SCH ×2 (05:36→11:32)
[2019-10-04 05:49] LABS: NUCLEATED RED BLOOD CELLS 1 /100 WBC; PLATELET ESTIMATE NORMAL
[2019-10-04] MEDS: METHYLPREDNISOLONE SOD SUCC 125 MG/2 ML VIAL IV SCH ×4 (06:10→22:14)
[2019-10-04] MEDS: HYDRALAZINE HCL 25MG TABLET PO SCH ×2 (06:11→14:53)
[2019-10-04] MEDS: FAMOTIDINE 20MG/2ML VIAL IV SCH ×2 (09:09→20:13)
[2019-10-04] MEDS: HYDROXYCHLOROQUINE SULFATE 200MG TABLET PO SCH (09:10)
[2019-10-04] MEDS: METOPROLOL TARTRATE 50MG TABLET PO SCH ×2 (09:10→20:14)
[2019-10-04] MEDS: IPRATROPIUM/ALBUTEROL 0.5-3(2.5)MG/3ML NEB HHN SCH ×2 (09:30→16:05)
[2019-10-04] MEDS ORDERED: HYDRALAZINE HCL 50MG TABLET PO NR (15:15)
[2019-10-04] MEDS: ATORVASTATIN CALCIUM 10MG TABLET PO SCH (20:13)
[2019-10-04] MEDS: AMLODIPINE 5MG TABLET PO SCH (20:14)
[2019-10-04] MEDS: LOSARTAN POTASSIUM 50 MG TABLET PO SCH (20:14)
[2019-10-04] MEDS: HYDRALAZINE HCL 50MG TABLET PO SCH (22:14)
[2019-10-05] VITALS (12 sets, daily range): BP systolic 122–148; BP diastolic 72–93
[2019-10-05] MEDS: DEXT 5%/0.45% NACL KCL 40MEQ/L 1,000 ML IV SCH ×3 (00:44→23:59)
[2019-10-05] MEDS: AMPICILLIN 2,000 MG in SODIUM CHLORIDE 0.9% 100 ML IV SCH ×4 (01:00→21:32)
[2019-10-05] MEDS: IPRATROPIUM/ALBUTEROL 0.5-3(2.5)MG/3ML NEB HHN SCH ×3 (01:47→15:00)
[2019-10-05] MEDS: SODIUM CHLORIDE 0.9% IV SCH ×2 (03:52→15:58)
[2019-10-05] MEDS: GENTAMICIN SULFATE IV SCH ×2 (03:52→15:58)
[2019-10-05] MEDS: HYDRALAZINE HCL 50MG TABLET PO SCH ×3 (05:04→23:59)
[2019-10-05] MEDS: METHYLPREDNISOLONE SOD SUCC 125 MG/2 ML VIAL IV SCH ×4 (05:04→23:59)
[2019-10-05 06:40] LABS: CHLORIDE 108 mEq/L (98-107)
[2019-10-05 06:46] LABS: HEMATOCRIT. 26.8 % (36.0-48.0); HEMOGLOBIN. 8.9 g/dL (12.0-16.0); MEAN CORPUSCULAR HEMOGLOBIN 28.5 pg (28.0-32.0); MEAN PLATELET VOLUME 7.9 fl (7.4-10.4); PLATELET 377 x1000/uL (130-400); RED BLOOD CELL COUNT 3.11 mill/uL (4.2-5.4); RED CELL DISTRIBUTION WIDTH 17.5 % (11.6-14.6)
[2019-10-05] MEDS: FAMOTIDINE 20MG/2ML VIAL IV SCH ×2 (09:20→21:50)
[2019-10-05] MEDS: METOPROLOL TARTRATE 50MG TABLET PO SCH ×2 (09:20→21:51)
[2019-10-05] MEDS: HYDROXYCHLOROQUINE SULFATE 200MG TABLET PO SCH (09:20)
[2019-10-05 14:51] LABS: PLATELET ESTIMATE NORMAL
[2019-10-05] MEDS: DIPHENHYDRAMINE 50MG/ML VIAL IV PRN (17:53)
[2019-10-05] MEDS ORDERED: CALCIUM GLUCONATE 1,000 MG in DEXT 5% WATER 90 ML IV NR (20:30)
[2019-10-05] MEDS: LOSARTAN POTASSIUM 50 MG TABLET PO SCH (21:50)
[2019-10-05] MEDS: ATORVASTATIN CALCIUM 10MG TABLET PO SCH (21:51)
[2019-10-05] MEDS: AMLODIPINE 5MG TABLET PO SCH (21:51)
[2019-10-06] VITALS (12 sets, daily range): BP systolic 122–150; BP diastolic 67–92
[2019-10-06] MEDS: IPRATROPIUM/ALBUTEROL 0.5-3(2.5)MG/3ML NEB HHN SCH ×3 (00:07→15:51)
[2019-10-06] MEDS: AMPICILLIN 2,000 MG in SODIUM CHLORIDE 0.9% 100 ML IV SCH ×4 (02:07→21:52)
[2019-10-06] MEDS: GENTAMICIN SULFATE IV SCH ×2 (04:16→17:59)
[2019-10-06] MEDS: SODIUM CHLORIDE 0.9% IV SCH ×2 (04:16→17:59)
[2019-10-06] MEDS: METHYLPREDNISOLONE SOD SUCC 125 MG/2 ML VIAL IV SCH ×4 (05:03→21:58)
[2019-10-06] MEDS: HYDRALAZINE HCL 50MG TABLET PO SCH ×3 (05:04→22:07)
[2019-10-06 05:54] LABS: HEMATOCRIT. 25.7 % (36.0-48.0); HEMOGLOBIN. 8.6 g/dL (12.0-16.0); MEAN CORPUSCULAR HEMOGLOBIN 28.5 pg (28.0-32.0); MEAN PLATELET VOLUME 7.9 fl (7.4-10.4); PLATELET 380 x1000/uL (130-400); RED BLOOD CELL COUNT 3.02 mill/uL (4.2-5.4); RED CELL DISTRIBUTION WIDTH 17.8 % (11.6-14.6)
[2019-10-06 06:27] LABS: CHLORIDE 105 mEq/L (98-107)
[2019-10-06] MEDS: METOPROLOL TARTRATE 50MG TABLET PO SCH ×2 (08:37→21:57)
[2019-10-06] MEDS: FAMOTIDINE 20MG/2ML VIAL IV SCH ×2 (08:37→21:56)
[2019-10-06] MEDS: HYDROXYCHLOROQUINE SULFATE 200MG TABLET PO SCH (08:38)
[2019-10-06 10:34] LABS: NUCLEATED RED BLOOD CELLS 2 /100 WBC; PLATELET ESTIMATE NORMAL
[2019-10-06] MEDS: DIPHENHYDRAMINE 50MG/ML VIAL IV PRN ×2 (10:44→18:00)
[2019-10-06] MEDS: DEXT 5%/0.45% NACL KCL 40MEQ/L 1,000 ML IV SCH (19:57)
[2019-10-06] MEDS: ATORVASTATIN CALCIUM 10MG TABLET PO SCH (21:57)
[2019-10-06] MEDS: LOSARTAN POTASSIUM 50 MG TABLET PO SCH (21:57)
[2019-10-06] MEDS: AMLODIPINE 5MG TABLET PO SCH (21:58)
[2019-10-07] VITALS (11 sets, daily range): BP systolic 128–191; BP diastolic 68–95
[2019-10-07] MEDS: IPRATROPIUM/ALBUTEROL 0.5-3(2.5)MG/3ML NEB HHN SCH ×3 (00:22→15:56)
[2019-10-07] MEDS: AMPICILLIN 2,000 MG in SODIUM CHLORIDE 0.9% 100 ML IV SCH ×4 (01:09→20:00)
[2019-10-07] MEDS: SODIUM CHLORIDE 0.9% IV SCH ×2 (04:00→16:48)
[2019-10-07] MEDS: GENTAMICIN SULFATE IV SCH ×2 (04:00→16:48)
[2019-10-07] MEDS: METHYLPREDNISOLONE SOD SUCC 125 MG/2 ML VIAL IV SCH ×4 (05:00→22:00)
[2019-10-07] MEDS: HYDRALAZINE HCL 50MG TABLET PO SCH ×3 (06:00→21:21)
[2019-10-07 07:53] LABS: ANTI-MYELOPEROXIDASE AB < 9.0 U/mL (0.0-9.0); ANTI-PROTEINASE 3 ABS 11.3 U/mL (0.0-3.5); ATYPICAL P-ANCA <1:20 titer (Neg:<1:20); CYTOPLASMIC C-ANCA <1:20 titer (Neg:<1:20)
[2019-10-07 07:53] LABS: ANGIOTENSION CONVERTING ENZYME 51 U/L (14-82); COMPLEMENT C3 43 mg/dL (82-167)
[2019-10-07 09:18] LABS: HEMATOCRIT. 26.1 % (36.0-48.0); HEMOGLOBIN. 8.7 g/dL (12.0-16.0); MEAN CORPUSCULAR HEMOGLOBIN 28.5 pg (28.0-32.0); PLATELET 365 x1000/uL (130-400); RED BLOOD CELL COUNT 3.04 mill/uL (4.2-5.4); RED CELL DISTRIBUTION WIDTH 17.4 % (11.6-14.6)
[2019-10-07 09:26] LABS: CHLORIDE 104 mEq/L (98-107)
[2019-10-07] MEDS: HYDROXYCHLOROQUINE SULFATE 200MG TABLET PO SCH (10:20)
[2019-10-07] MEDS: FAMOTIDINE 20MG/2ML VIAL IV SCH ×2 (10:21→21:20)
[2019-10-07] MEDS: METOPROLOL TARTRATE 50MG TABLET PO SCH ×2 (10:21→21:21)
[2019-10-07] MEDS ORDERED: POTASSIUM CHLORIDE 20MEQ TABLET SR PO NR (10:45)
[2019-10-07] MEDS: DEXT 5%/0.45% NACL KCL 40MEQ/L 1,000 ML IV SCH (15:14)
[2019-10-07 17:19] LABS: PLATELET ESTIMATE NORMAL
[2019-10-07] MEDS: LOSARTAN POTASSIUM 50 MG TABLET PO SCH (21:21)
[2019-10-07] MEDS: AMLODIPINE 5MG TABLET PO SCH (21:21)
[2019-10-07] MEDS: ATORVASTATIN CALCIUM 10MG TABLET PO SCH (21:23)
[2019-10-07] MEDS: LORAZEPAM 2MG/ML CPJ IV PRN (21:47)
[2019-10-08] VITALS (10 sets, daily range): BP systolic 121–157; BP diastolic 67–88
[2019-10-08] MEDS: IPRATROPIUM/ALBUTEROL 0.5-3(2.5)MG/3ML NEB HHN SCH ×3 (00:31→16:16)
[2019-10-08] MEDS: AMPICILLIN 2,000 MG in SODIUM CHLORIDE 0.9% 100 ML IV SCH ×3 (01:42→13:27)
[2019-10-08] MEDS: SODIUM CHLORIDE 0.9% IV SCH ×2 (04:00→16:34)
[2019-10-08] MEDS: GENTAMICIN SULFATE IV SCH ×2 (04:00→16:34)
[2019-10-08] MEDS: METHYLPREDNISOLONE SOD SUCC 125 MG/2 ML VIAL IV SCH ×3 (05:05→16:35)
[2019-10-08] MEDS: HYDRALAZINE HCL 50MG TABLET PO SCH ×2 (05:08→13:27)
[2019-10-08] MEDS: LORAZEPAM 2MG/ML CPJ IV PRN (05:08)
[2019-10-08 05:09] LABS: HEMATOCRIT. 28.6 % (36.0-48.0); HEMOGLOBIN. 9.3 g/dL (12.0-16.0); MEAN CORPUSCULAR HEMOGLOBIN 27.9 pg (28.0-32.0); MEAN PLATELET VOLUME 7.6 fl (7.4-10.4); PLATELET 343 x1000/uL (130-400); RED BLOOD CELL COUNT 3.33 mill/uL (4.2-5.4); RED CELL DISTRIBUTION WIDTH 18.3 % (11.6-14.6)
[2019-10-08 05:27] LABS: CHLORIDE 105 mEq/L (98-107)
[2019-10-08 09:47] LABS: PLATELET ESTIMATE NORMAL
[2019-10-08] MEDS: FAMOTIDINE 20MG/2ML VIAL IV SCH (09:59)
[2019-10-08] MEDS: METOPROLOL TARTRATE 50MG TABLET PO SCH (10:01)
[2019-10-08] MEDS: HYDROXYCHLOROQUINE SULFATE 200MG TABLET PO SCH (10:02)
[2019-10-08] MEDS ORDERED: POTASSIUM CHLORIDE 20MEQ TABLET SR PO NR (13:15)
== END 2019-10-08 19:30 | DRG 871 ==
LOC: ER 10:13 → 5WST 15:55 → EDBEDREQ 15:59 → ENRESERV 20:29 → 5EST 09-30 23:47
PROVIDERS: ADMIT Internal Medicine; ATTEND Internal Medicine
PROC: 30233N1 Transfusion of Nonautologous Red Blood Cells into Peripheral Vein, Percutaneous Approach (ICD-10-PCS; 2019-09-30)
PROC: 05HY33Z Insertion of Infusion Device into Upper Vein, Percutaneous Approach (ICD-10-PCS; principal; 2019-10-02)
PROC: B54MZZZ Ultrasonography of Right Upper Extremity Veins (ICD-10-PCS; 2019-10-02)
DX: A41.81 Sepsis due to Enterococcus (principal); E43 Unspecified severe protein-calorie malnutrition; G93.41 Metabolic encephalopathy; I33.0 Acute and subacute infective endocarditis; I63.411 Cerebral infarction due to embolism of right middle cerebral artery; F84.0 Autistic disorder; N39.0 Urinary tract infection, site not specified; D68.62 Lupus anticoagulant syndrome; I31.3 Pericardial effusion (noninflammatory); J45.901 Unspecified asthma with (acute) exacerbation; B95.2 Enterococcus as the cause of diseases classified elsewhere; D64.9 Anemia, unspecified; E86.0 Dehydration; E87.6 Hypokalemia; I10 Essential (primary) hypertension; K75.4 Autoimmune hepatitis; M32.9 Systemic lupus erythematosus, unspecified; D89.2 Hypergammaglobulinemia, unspecified; I77.6 Arteritis, unspecified; B96.20 Unspecified Escherichia coli [E. coli] as the cause of diseases classified elsewhere; D25.9 Leiomyoma of uterus, unspecified; E83.51 Hypocalcemia; G31.9 Degenerative disease of nervous system, unspecified; I34.0 Nonrheumatic mitral (valve) insufficiency; I67.1 Cerebral aneurysm, nonruptured; K80.20 Calculus of gallbladder without cholecystitis without obstruction; B96.89 Other specified bacterial agents as the cause of diseases classified elsewhere; M13.0 Polyarthritis, unspecified; N28.9 Disorder of kidney and ureter, unspecified; R62.7 Adult failure to thrive; Z79.899 Other long term (current) drug therapy; Z88.8 Allergy status to other drugs, medicaments and biological substances; Z68.25 Body mass index [BMI] 25.0-25.9, adult
CPT/HCPCS: 36415; 36600; 70496; 70498; 70551; 71045; 74176; 76937; 80048; 80061; 80170; 80305; 80307; 80320; 80329; 81003; 82140; 82164; 82330; 82375; 82550; 82607; 82805; 82955; 83010; 83520; 83605; 83615; 83880; 84145; 84156; 84439; 84443; 84484; 84550; 84703; 85014; 85018; 85041; 85044; 85379; 85613; 85651; 85732; 86160; 86225; 86235; 86256; 86850; 86880; 86900; 86920; 87077; 87186; 92610; 93005; 93306; 95816; 97162; 97530; 99285; A6261; C1725; J0290; J0360; J0610; J0696; J1200; J1580; J2060; J2185; J2930; J3370; J3480; J3490; J7030; J7040; J7050; J7060; J7620; P9016; Q9967; A4315; G0480

== ENCOUNTER 2020-03-26 14:14 | Inpatient (IN) | payer OTHER, MEDICAID ==
[~2020-03-26] VITALS: Ht 162.6 cm; Wt 45.5 kg
[2020-03-26] MEDS ORDERED: IBUPROFEN 600MG TABLET PO STA (15:19)
[2020-03-26 15:48] LABS: BASOPHILS % 0.4 % (0.0-2.0); EOSINOPHILS % 0.5 % (0.0-5.0); HEMATOCRIT. 34.5 % (36.0-48.0); HEMOGLOBIN. 11.4 g/dL (12.0-16.0); LYMPHOCYTES % 32.6 % (20.0-50.0); MEAN CORPUSCULAR HEMOGLOBIN 28.3 pg (28.0-32.0); MEAN PLATELET VOLUME 8.1 fl (7.4-10.4); MONOCYTES % 2.8 % (2.0-8.0); NEUTROPHILS % 63.7 % (40.0-76.0); PLATELET 504 x1000/uL (130-400); RED BLOOD CELL COUNT 4.01 mill/uL (4.2-5.4); RED CELL DISTRIBUTION WIDTH 15.2 % (11.6-14.6)
[2020-03-26 15:50] LABS: CHLORIDE 109 mEq/L (98-107)
[2020-03-26 15:51] LABS: HCG SCREEN NEGATIVE
[2020-03-26 15:54] LABS: ETHANOL BLOOD < 10 mg/dL
[2020-03-26] MEDS ORDERED: SODIUM CHLORIDE 0.9% 1,000 ML IV ONE (16:36)
[2020-03-26 18:45] LABS: CLARITY URINE TURBID (CLEAR); COLOR URINE YELLOW (YELLOW); KETONES URINE TRACE (NEGATIVE); LEUKOCYTE ESTERASE URINE 1+ (NEGATIVE); NITRITE URINE NEGATIVE (NEGATIVE); OCCULT BLOOD URINE 2+ (NEGATIVE); PROTEIN URINE 2+ (NEGATIVE); SPECIFIC GRAVITY URINE 1.022 (1.005-1.030)
[2020-03-26 19:04] LABS: *AMPHETAMINES SCREEN URINE NEGATIVE (NEGATIVE); *BARBITURATES SCREEN URINE NEGATIVE (NEGATIVE); *BENZODIAZEPINES SCREEN URINE NEGATIVE (NEGATIVE); *COCAINE SCREEN URINE NEGATIVE (NEGATIVE); CANNABINOID URINE SCREEN NEGATIVE (NEGATIVE)
[2020-03-26 19:05] LABS: METHADONE URINE SCREEN NEGATIVE (NEGATIVE); OPIATES URINE SCREEN NEGATIVE (NEGATIVE); PHENCYCLIDINE URINE SCREEN NEGATIVE (NEGATIVE)
[2020-03-26] MEDS ORDERED: CEFTRIAXONE 1 G PREMIX 50 ML IV ONE (20:00)
[2020-03-26] MEDS ORDERED: ACETAMINOPHEN 325MG TABLET PO PRN (22:15)
[2020-03-26] MEDS ORDERED: DIPHENHYDRAMINE 50MG/ML VIAL IV PRN (22:15)
[2020-03-26] MEDS ORDERED: ONDANSETRON HCL 4MG/2ML INJ IV PRN (22:15)
[2020-03-26] MEDS ORDERED: CLONIDINE 0.1MG TABLET PO PRN (22:15)
[2020-03-26] MEDS ORDERED: ZOLPIDEM TARTRATE 5MG TABLET PO PRN (22:15)
[2020-03-26] MEDS ORDERED: LEVOFLOXACIN 500MG PREMIX 100 ML IV SCH (22:30)
[2020-03-27] VITALS: BP 112/71
[2020-03-27] MEDS ORDERED: LEVOFLOXACIN 500MG PREMIX 100 ML IV SCH
[2020-03-27] MEDS: DEXT 5%/0.45% NACL 1000ML 1,000 ML IV SCH ×3 (00:29→17:58)
[2020-03-27 02:18] VITALS: BP 112/71
[2020-03-27 04:00] VITALS: BP 137/91
[2020-03-27 08:00] VITALS: BP 124/74
[2020-03-27 08:10] LABS: BASOPHILS % 0.3 % (0.0-2.0); EOSINOPHILS % 0.2 % (0.0-5.0); HEMATOCRIT. 34.3 % (36.0-48.0); HEMOGLOBIN. 10.6 g/dL (12.0-16.0); LYMPHOCYTES % 18.9 % (20.0-50.0); MEAN CORPUSCULAR HEMOGLOBIN 27.8 pg (28.0-32.0); MEAN CORPUSCULAR VOLUME 90.2 fL (81.0-99.0); MEAN PLATELET VOLUME 8.2 fl (7.4-10.4); MONOCYTES % 3.2 % (2.0-8.0); NEUTROPHILS % 77.4 % (40.0-76.0); PLATELET 401 x1000/uL (130-400); RED CELL DISTRIBUTION WIDTH 16.2 % (11.6-14.6)
[2020-03-27] MEDS: ENOXAPARIN 30MG/0.3ML SYR SUBCUT SCH (08:18)
[2020-03-27] MEDS: ACETAMINOPHEN 325MG TABLET PO PRN ×2 (08:48→21:28)
[2020-03-27] MEDS ORDERED: ENOXAPARIN 40MG/0.4ML SYR SUBCUT SCH (09:00)
[2020-03-27] MEDS ORDERED: METHYLPREDNISOLONE SOD SUCC 125 MG/2 ML VIAL IV SCH (10:00)
[2020-03-27] MEDS: METHYLPREDNISOLONE SOD SUCC 125 MG/2 ML VIAL IV SCH ×3 (12:47→23:57)
[2020-03-27] MEDS: HYDROXYCHLOROQUINE SULFATE 200MG TABLET PO SCH (13:02)
[2020-03-27 16:00] VITALS: BP 151/86
[2020-03-27 20:00] VITALS: BP 149/96
[2020-03-27 20:23] LABS: PARTIAL THROMBOPLASTIN TIME 26.5 sec (23.4-31.0); PROTHROMBIN TIME 10.6 sec (9.6-11.0)
[2020-03-27] MEDS: LEVOFLOXACIN 250MG PREMIX 50 ML IV SCH (21:06)
[2020-03-28] VITALS: BP 140/80
[2020-03-28 04:00] VITALS: BP 160/95
[2020-03-28] MEDS: METHYLPREDNISOLONE SOD SUCC 125 MG/2 ML VIAL IV SCH ×3 (05:37→17:03)
[2020-03-28 07:35] LABS: HEMATOCRIT. 33.6 % (36.0-48.0); HEMOGLOBIN. 10.9 g/dL (12.0-16.0); LYMPHOCYTES % 10.3 % (20.0-50.0); MEAN CORPUSCULAR HEMOGLOBIN 27.8 pg (28.0-32.0); MEAN CORPUSCULAR VOLUME 85.4 fL (81.0-99.0); MEAN PLATELET VOLUME 8.2 fl (7.4-10.4); MONOCYTES % 1.6 % (2.0-8.0); NEUTROPHILS % 88.1 % (40.0-76.0); PLATELET 426 x1000/uL (130-400); RED BLOOD CELL COUNT 3.93 mill/uL (4.2-5.4); RED CELL DISTRIBUTION WIDTH 15.1 % (11.6-14.6)
[2020-03-28 08:00] VITALS: BP 169/95
[2020-03-28 08:02] LABS: PHOSPHORUS 2.8 mg/dL (2.5-4.9)
[2020-03-28] MEDS: ENOXAPARIN 30MG/0.3ML SYR SUBCUT SCH (08:18)
[2020-03-28] MEDS: HYDROXYCHLOROQUINE SULFATE 200MG TABLET PO SCH (08:18)
[2020-03-28 12:00] VITALS: BP 152/96
[2020-03-28] MEDS: DEXT 5%/0.45% NACL 1000ML 1,000 ML IV SCH (14:30)
[2020-03-28] MEDS: AMLODIPINE 5MG TABLET PO SCH (15:47)
[2020-03-28 16:00] VITALS: BP 163/94
[2020-03-28 20:00] VITALS: BP 136/97
[2020-03-28] MEDS ORDERED: TRAMADOL 50MG TABLET PO PRN ×2 (20:30→20:54)
[2020-03-28] MEDS: HYDROCORTISONE 1% CREAM 30GM TOP SCH (21:05)
[2020-03-28] MEDS: LEVOFLOXACIN 250MG PREMIX 50 ML IV SCH (21:06)
[2020-03-29] VITALS: BP 130/80
[2020-03-29] MEDS: METHYLPREDNISOLONE SOD SUCC 125 MG/2 ML VIAL IV SCH ×3 (01:30→11:05)
[2020-03-29 04:00] VITALS: BP 137/87
[2020-03-29 08:00] VITALS: BP 119/79
[2020-03-29 08:24] LABS: BASOPHILS % 0.2 % (0.0-2.0); HEMATOCRIT. 33.2 % (36.0-48.0); HEMOGLOBIN. 11.1 g/dL (12.0-16.0); LYMPHOCYTES % 9.6 % (20.0-50.0); MEAN CORPUSCULAR HEMOGLOBIN 28.4 pg (28.0-32.0); MEAN CORPUSCULAR VOLUME 84.8 fL (81.0-99.0); MEAN PLATELET VOLUME 8.2 fl (7.4-10.4); MONOCYTES % 2.8 % (2.0-8.0); NEUTROPHILS % 87.4 % (40.0-76.0); PLATELET 412 x1000/uL (130-400); RED BLOOD CELL COUNT 3.92 mill/uL (4.2-5.4)
[2020-03-29 08:30] LABS: CHLORIDE 108 mEq/L (98-107)
[2020-03-29 08:42] LABS: PHOSPHORUS 2.3 mg/dL (2.5-4.9)
[2020-03-29] MEDS: AMLODIPINE 5MG TABLET PO SCH ×2 (08:46→09:00)
[2020-03-29] MEDS: HYDROXYCHLOROQUINE SULFATE 200MG TABLET PO SCH (08:46)
[2020-03-29] MEDS: HYDROCORTISONE 1% CREAM 30GM TOP SCH ×2 (08:47→21:45)
[2020-03-29] MEDS: ENOXAPARIN 30MG/0.3ML SYR SUBCUT SCH (08:47)
[2020-03-29] MEDS: DEXT 5%/0.45% NACL 1000ML 1,000 ML IV SCH (11:05)
[2020-03-29 12:00] VITALS: BP 125/83
[2020-03-29] MEDS ORDERED: DEXT 5%/0.45% NACL 1000ML 1,000 ML IV SCH (12:54)
[2020-03-29] MEDS ORDERED: POTASSIUM PHOS,M-BASIC-D-BASIC 20 MMOL in DEXT 5% WATER 243.3333 ML IV SCH (14:00)
[2020-03-29] MEDS ORDERED: MAGNESIUM 2 G PREMIX 50 ML IV SCH (14:00)
[2020-03-29] MEDS ORDERED: TRAM50TA3 PO (14:25)
[2020-03-29] MEDS ORDERED: AMLO5TAB88 PO (14:25)
[2020-03-29] MEDS ORDERED: HYDR200T35 PO (14:25)
[2020-03-29] MEDS ORDERED: P20 MT (14:42)
[2020-03-29] MEDS ORDERED: AZAT50TA18 PO (14:42)
[2020-03-29 16:00] VITALS: BP 120/81
[2020-03-29] MEDS: METHYLPREDNISOLONE SOD SUCC 40 MG/ML VIAL IV SCH ×2 (17:25→21:45)
[2020-03-29 20:00] VITALS: BP 126/75
[2020-03-29] MEDS: LEVOFLOXACIN 250MG PREMIX 50 ML IV SCH (21:45)
[2020-03-29] MEDS: ACETAMINOPHEN 325MG TABLET PO PRN (21:50)
[2020-03-30] VITALS: BP 132/87
[2020-03-30 04:00] VITALS: BP 130/83
[2020-03-30 05:56] VITALS: BP 126/75
[2020-03-30] MEDS: METHYLPREDNISOLONE SOD SUCC 40 MG/ML VIAL IV SCH ×2 (06:34→09:56)
[2020-03-30 07:29] LABS: HEMATOCRIT. 32.1 % (36.0-48.0); HEMOGLOBIN. 10.8 g/dL (12.0-16.0); LYMPHOCYTES % 11.3 % (20.0-50.0); MEAN CORPUSCULAR HEMOGLOBIN 28.4 pg (28.0-32.0); MEAN CORPUSCULAR VOLUME 84.4 fL (81.0-99.0); MEAN PLATELET VOLUME 8.2 fl (7.4-10.4); MONOCYTES % 4.4 % (2.0-8.0); NEUTROPHILS % 84.3 % (40.0-76.0); PLATELET 429 x1000/uL (130-400); RED CELL DISTRIBUTION WIDTH 15.1 % (11.6-14.6)
[2020-03-30 07:39] LABS: CHLORIDE 107 mEq/L (98-107)
[2020-03-30 07:51] LABS: PHOSPHORUS 3.1 mg/dL (2.5-4.9)
[2020-03-30 08:00] VITALS: BP 141/92
[2020-03-30 08:12] LABS: *CREATININE RANDOM URINE 37.7 mg/dL (Not Estab.); MICROALBUMIN RANDOM URINE 41.4 ug/mL (Not Estab.)
[2020-03-30] MEDS: AMLODIPINE 5MG TABLET PO SCH (09:00)
[2020-03-30 09:06] LABS: IMMUNOGLOBULIN A 170 mg/dL (87-352); IMMUNOGLOBULIN G 3981 mg/dL (586-1602); IMMUNOGLOBULIN M 176 mg/dL (26-217)
[2020-03-30] MEDS ORDERED: AMLODIPINE 5MG TABLET PO SCH (09:45)
[2020-03-30] MEDS: ENOXAPARIN 30MG/0.3ML SYR SUBCUT SCH (09:56)
[2020-03-30] MEDS: HYDROXYCHLOROQUINE SULFATE 200MG TABLET PO SCH (09:56)
[2020-03-30] MEDS: HYDROCORTISONE 1% CREAM 30GM TOP SCH (09:57)
[2020-03-30 12:00] VITALS: BP 105/78
[2020-03-30 13:06] LABS: ANTI-DNA DOUBLE STRANDED QUANT > 300 IU/mL (0-9); RNP ANTIBODY > 8.0 AI (0.0-0.9); SMITH ANTIBODY > 8.0 AI (0.0-0.9)
[2020-03-30 15:09] LABS: A/G RATIO 0.5 (0.7-1.7); ALBUMIN 2.8 g/dL (2.9-4.4); ALPHA-1-GLOBULIN 0.3 g/dL (0.0-0.4); ALPHA-2-GLOBULIN 1.1 g/dL (0.4-1.0); BETA GLOBULIN 0.8 g/dL (0.7-1.3); GAMMA GLOBULINS 3.8 g/dL (0.4-1.8); M-SPIKE Not Observed g/dL (Not Observed); TOTAL PROTEIN SERUM 8.8 g/dL (6.0-8.5)
[2020-03-31] MEDS ORDERED: AMLODIPINE 10MG TABLET PO SCH (09:00)
[2020-03-31 10:08] LABS: ANGIOTENSION CONVERTING ENZYME 76 U/L (14-82)
[2020-03-31 13:06] LABS: ACTIN (SMOOTH MUSCLE) ANTIBODY 52 Units (0-19)
[2020-03-31 15:08] LABS: ANTI-MYELOPEROXIDASE AB < 9.0 U/mL (0.0-9.0); ANTI-PROTEINASE 3 ABS 4.7 U/mL (0.0-3.5)
[2020-03-31 17:11] LABS: ANA IFA Positive (.)
[2020-04-01 09:06] LABS: GLOMERULAR BASEMENT MEMB AB 7 units (0-20)
[2020-04-01 14:11] LABS: ATYPICAL P-ANCA <1:20 titer (Neg:<1:20); CYTOPLASMIC C-ANCA <1:20 titer (Neg:<1:20)
[2020-04-02 04:07] LABS: ANTI-CARDIOLIPIN AB IGA < 9 APL U/mL (0-11); ANTI-CARDIOLIPIN AB IGG 36 GPL U/mL (0-14); ANTI-CARDIOLIPIN AB IGM 22 MPL U/mL (0-12)
== END 2020-03-30 12:38 | disposition home or self-care (01) | DRG 640 ==
LOC: ER 14:38 → EDBEDREQTM 19:53 → EDBEDREQSVC 19:53 → EDBEDREQ 19:53 → ENRESERV 21:10 → 6EST 22:29
PROVIDERS: ADMIT Internal Medicine; ATTEND Internal Medicine
DX: E86.0 Dehydration (principal); N17.0 Acute kidney failure with tubular necrosis; F84.0 Autistic disorder; N30.00 Acute cystitis without hematuria; E46 Unspecified protein-calorie malnutrition; Z68.1 Body mass index [BMI] 19.9 or less, adult; M32.9 Systemic lupus erythematosus, unspecified; I10 Essential (primary) hypertension; R62.7 Adult failure to thrive; D89.2 Hypergammaglobulinemia, unspecified; J45.909 Unspecified asthma, uncomplicated; K75.4 Autoimmune hepatitis; D64.9 Anemia, unspecified; I77.6 Arteritis, unspecified; M19.90 Unspecified osteoarthritis, unspecified site; Z86.73 Personal history of transient ischemic attack (TIA), and cerebral infarction without residual deficits; Z88.8 Allergy status to other drugs, medicaments and biological substances
CPT/HCPCS: 36415; 71045; 76770; 80048; 80053; 80305; 80320; 81003; 82043; 82140; 82164; 82570; 82784; 83520; 83735; 84100; 84155; 84165; 84300; 84703; 85025; 85651; 86147; 86160; 86225; 86235; 86256; 86334; 86880; 88108; 93005; 93306; 97162; 97166; 99285; J1650; J1956; J2920; J2930; J3475; J3490; J7030; J7060; G0480

== ENCOUNTER 2020-07-03 16:25 | Inpatient (IN) | payer OTHER, MEDICAID ==
[~2020-07-03] VITALS: Ht 167.6 cm; Wt 54.4 kg
[~2020-07-03 16:25] MED LIST changes: +AMLO5TAB88 PO; +AZAT50TA18 PO; -AZAT50TA24 PO; -HYDR-4135 PO; +HYDR200T35 PO; -METH125V12 IV; -METO100T16 PO; +P20 MT; +TRAM50TA3 PO
[2020-07-03] MEDS ORDERED: LORAZEPAM 2MG/ML CPJ IM ONE (17:00)
[2020-07-03] MEDS ORDERED: SODIUM CHLORIDE 0.9% 1,000 ML IV ONE (17:15)
[2020-07-03 17:26] LABS: BASOPHILS % 0.3 % (0.0-2.0); EOSINOPHILS % 0.1 % (0.0-5.0); HEMATOCRIT. 39.4 % (36.0-48.0); HEMOGLOBIN. 12.3 g/dL (12.0-16.0); LYMPHOCYTES % 7.2 % (20.0-50.0); MEAN CORPUSCULAR HEMOGLOBIN 29.6 pg (28.0-32.0); MEAN CORPUSCULAR VOLUME 94.7 fL (81.0-99.0); MEAN PLATELET VOLUME 8.3 fl (7.4-10.4); MONOCYTES % 2.5 % (2.0-8.0); NEUTROPHILS % 89.9 % (40.0-76.0); PLATELET 379 x1000/uL (130-400); RED BLOOD CELL COUNT 4.16 mill/uL (4.2-5.4); RED CELL DISTRIBUTION WIDTH 16.8 % (11.6-14.6)
[2020-07-03 17:31] LABS: CHLORIDE 104 mEq/L (98-107)
[2020-07-03 17:39] LABS: ETHANOL BLOOD < 10 mg/dL
[2020-07-03 17:41] LABS: CARBAMAZEPINE 1.9 ug/mL (4-12)
[2020-07-03 17:43] LABS: PHENOBARBITAL < 2.1 ug/mL (15.0-40.0); VALPROIC ACID < 3.0 ug/mL (50-100)
[2020-07-03] MEDS ORDERED: LEVETIRACETAM 500MG PREMIX 100 ML IV ONE ×2 (18:30→19:00)
[2020-07-03 21:35] LABS: CLARITY URINE CLEAR (CLEAR); COLOR URINE YELLOW (YELLOW); KETONES URINE NEGATIVE (NEGATIVE); LEUKOCYTE ESTERASE URINE NEGATIVE (NEGATIVE); NITRITE URINE NEGATIVE (NEGATIVE); OCCULT BLOOD URINE 1+ (NEGATIVE); PROTEIN URINE 1+ (NEGATIVE); SPECIFIC GRAVITY URINE 1.013 (1.005-1.030); UROBILINOGEN URINE 0.2 E.U./dL (0.2-1.0)
[2020-07-03 21:39] LABS: HCG SCREEN NEGATIVE
[2020-07-03] MEDS ORDERED: LORAZEPAM 2MG/ML CPJ IV PRN (21:45)
[2020-07-03 22:05] LABS: *AMPHETAMINES SCREEN URINE NEGATIVE (NEGATIVE); *BARBITURATES SCREEN URINE NEGATIVE (NEGATIVE); *COCAINE SCREEN URINE NEGATIVE (NEGATIVE); METHADONE URINE SCREEN NEGATIVE (NEGATIVE); OPIATES URINE SCREEN NEGATIVE (NEGATIVE)
[2020-07-03 22:06] LABS: CANNABINOID URINE SCREEN NEGATIVE (NEGATIVE); PHENCYCLIDINE URINE SCREEN NEGATIVE (NEGATIVE)
[2020-07-03 22:07] LABS: *BENZODIAZEPINES SCREEN URINE PRESUMTIVE POSITIVE (NEGATIVE)
[2020-07-03 22:18] VITALS: BP 155/99
[2020-07-03 22:48] VITALS: BP 154/105
[2020-07-03 23:00] VITALS: BP 160/97
[2020-07-03] MEDS: NITROGLYCERIN OINT 1GM/INCH UDPKT TD SCH (23:15)
[2020-07-03] MEDS: HYDROCORTISONE SOD SUCCINATE 100 MG/2 ML VIAL IV SCH (23:16)
[2020-07-03 23:18] VITALS: BP 161/99
[2020-07-03] MEDS: DEXT 5%/0.45% NACL KCL 20MEQ/L 1,000 ML IV SCH (23:20)
[2020-07-03] MEDS: FAMOTIDINE 20MG/2ML VIAL IV SCH (23:22)
[2020-07-03] MEDS: LEVETIRACETAM 500MG PREMIX 100 ML IV SCH (23:22)
[2020-07-03 23:48] VITALS: BP 149/67
[2020-07-04] VITALS (39 sets, daily range): BP systolic 134–186; BP diastolic 66–122
[2020-07-04] MEDS: IPRATROPIUM/ALBUTEROL 0.5-3(2.5)MG/3ML NEB HHN SCH ×2 (00:30→08:00)
[2020-07-04 04:57] LABS: HEMATOCRIT. 37.8 % (36.0-48.0); HEMOGLOBIN. 12.2 g/dL (12.0-16.0); MEAN CORPUSCULAR HEMOGLOBIN 29.9 pg (28.0-32.0); MEAN CORPUSCULAR VOLUME 92.8 fL (81.0-99.0); PLATELET 378 x1000/uL (130-400); RED BLOOD CELL COUNT 4.07 mill/uL (4.2-5.4); RED CELL DISTRIBUTION WIDTH 16.7 % (11.6-14.6)
[2020-07-04 05:35] LABS: CHLORIDE 104 mEq/L (98-107)
[2020-07-04] MEDS: HYDROCORTISONE SOD SUCCINATE 100 MG/2 ML VIAL IV SCH ×2 (06:16→14:47)
[2020-07-04] MEDS: NITROGLYCERIN OINT 1GM/INCH UDPKT TD SCH ×3 (06:16→21:52)
[2020-07-04] MEDS ORDERED: POTASSIUM CHLORIDE INJ 60 MEQ in DEXT 5% WATER 500 ML IV ONE (09:00)
[2020-07-04] MEDS: FAMOTIDINE 20MG/2ML VIAL IV SCH (09:06)
[2020-07-04] MEDS: DEXT 5%/0.45% NACL KCL 20MEQ/L 1,000 ML IV SCH ×2 (09:07→19:57)
[2020-07-04 10:20] LABS: BG BASE EXCESS -0.5 mmol/L (-2.0-2.0); BG CARBOXYHEMOGLOBIN 0.5 % (0.5-1.5); BG DEOXYHEMOGLOBIN 3.5 % (0.0-5.0); BG FRACTION INSPIRED OXYGEN 21; BG HCO3 ACT 23.8 mmol/L (22.0-26.0); BG METHEMOGLOBIN 0.3 % (0.0-1.5); BG OXYGEN SATURATION 96.5 % (92.0-98.5); BG OXYHEMOGLOBIN 95.7 % (94.0-97.0); BG PCO2 37.9 mmHg (35.0-45.0); BG PH 7.416 (7.350-7.450); BG PO2 83.2 mmHg (75.0-100.0); BG SAMPLE SITE RIGHT BRACHIAL; BG TOTAL HEMOGLOBIN 12.6 g/dL (12.0-18.0); BG VENT MODE ROOM AIR
[2020-07-04 10:43] LABS: PLATELET ESTIMATE NORMAL
[2020-07-04 11:55] LABS: CREATINE KINASE 119 IU/L (26-192); CREATINE KINASE MB FRACTION < 1.0 ng/mL (0.5-3.6)
[2020-07-04 12:06] LABS: VALPROIC ACID < 3.0 ug/mL (50-100)
[2020-07-04] MEDS: LEVETIRACETAM 500MG PREMIX 100 ML IV SCH ×2 (12:24→22:58)
[2020-07-04] MEDS: PIPERACILLIN/TAZOBACTAM 3.375 G in DEXT 5% WATER 100 ML IV SCH ×3 (12:24→23:43)
[2020-07-04 12:27] LABS: *AMPHETAMINES SCREEN URINE NEGATIVE (NEGATIVE); *BARBITURATES SCREEN URINE NEGATIVE (NEGATIVE)
[2020-07-04 12:28] LABS: *COCAINE SCREEN URINE NEGATIVE (NEGATIVE); METHADONE URINE SCREEN NEGATIVE (NEGATIVE); OPIATES URINE SCREEN NEGATIVE (NEGATIVE); PHENCYCLIDINE URINE SCREEN NEGATIVE (NEGATIVE)
[2020-07-04 12:29] LABS: CANNABINOID URINE SCREEN NEGATIVE (NEGATIVE)
[2020-07-04 12:37] LABS: *BENZODIAZEPINES SCREEN URINE PRESUMTIVE POSITIVE (NEGATIVE)
[2020-07-04] MEDS ORDERED: MORPHINE SULFATE 2 MG/ML CPJ (NOT FOR IM USE) IV PRN (16:15)
[2020-07-04] MEDS ORDERED: HYDROCODONE/ACETAMINOPHEN 5/325MG TABLET PO PRN (16:45)
[2020-07-04] MEDS ORDERED: LORAZEPAM 2MG/ML CPJ IV PRN (16:45)
[2020-07-04] MEDS ORDERED: IPRATROPIUM/ALBUTEROL 0.5-3(2.5)MG/3ML NEB HHN PRN (16:45)
[2020-07-04] MEDS ORDERED: DILTIAZEM HCL 5MG/ML 5ML VIAL IV NR (16:45)
[2020-07-04] MEDS ORDERED: DIPHENHYDRAMINE 50MG/ML VIAL IV PRN (16:45)
[2020-07-04] MEDS ORDERED: ACETAMINOPHEN 325MG TABLET PO PRN (16:45)
[2020-07-04] MEDS ORDERED: DILTIAZEM HCL 5MG/ML 5ML VIAL IV PRN (16:45)
[2020-07-04] MEDS ORDERED: BISACODYL 10MG SUPP PR PRN (16:45)
[2020-07-04] MEDS ORDERED: ACETAMINOPHEN 650MG SUPP PR PRN (16:45)
[2020-07-04] MEDS ORDERED: IOHEXOL-350 100 ML BOTTLE ONE (16:50)
[2020-07-04] MEDS ORDERED: VANCOMYCIN 1 G PREMIX 200 ML IV SCH (18:30)
[2020-07-04] MEDS: METHYLPREDNISOLONE SOD SUCC 125 MG/2 ML VIAL IV SCH (21:51)
[2020-07-04 22:36] LABS: CHLORIDE 104 mEq/L (98-107)
[2020-07-04] MEDS: METOPROLOL TARTRATE 5MG/5ML VIAL IV SCH (22:58)
[2020-07-05] VITALS (31 sets, daily range): BP systolic 121–171; BP diastolic 68–109
[2020-07-05] MEDS ORDERED: WATER IV SCH ×2
[2020-07-05] MEDS ORDERED: DEXT 5% IV SCH ×2
[2020-07-05] MEDS ORDERED: AMIODARONE HCL IV SCH ×2
[2020-07-05] MEDS ORDERED: AMIODARONE HCL 900 MG in DEXT 5% WATER 482 ML IV PRN (00:30)
[2020-07-05] MEDS: METHYLPREDNISOLONE SOD SUCC 125 MG/2 ML VIAL IV SCH ×4 (03:29→22:06)
[2020-07-05] MEDS ORDERED: VANCOMYCIN 750 MG PREMIX 150 ML IV SCH (06:00)
[2020-07-05 06:03] LABS: CHLORIDE 102 mEq/L (98-107)
[2020-07-05] MEDS: DEXT 5%/0.45% NACL KCL 20MEQ/L 1,000 ML IV SCH ×2 (06:03→15:00)
[2020-07-05] MEDS: PIPERACILLIN/TAZOBACTAM 3.375 G in DEXT 5% WATER 100 ML IV SCH ×3 (06:03→17:09)
[2020-07-05] MEDS: NITROGLYCERIN OINT 1GM/INCH UDPKT TD SCH ×3 (06:03→22:07)
[2020-07-05 06:13] LABS: CREATINE KINASE 69 IU/L (26-192)
[2020-07-05 06:35] LABS: HEMATOCRIT 36.7 % (36.0-48.0); HEMOGLOBIN 11.8 g/dL (12.0-16.0); MEAN CORPUSCULAR HEMOGLOBIN 29.9 pg (28.0-32.0); MEAN CORPUSCULAR VOLUME 92.4 fL (81.0-99.0); PLATELET 423 x1000/uL (130-400); RED BLOOD CELL COUNT 3.97 mill/uL (4.2-5.4); RED CELL DISTRIBUTION WIDTH 16.5 % (11.6-14.6)
[2020-07-05] MEDS: FAMOTIDINE 20MG/2ML VIAL IV SCH (08:46)
[2020-07-05] MEDS: METOPROLOL TARTRATE 5MG/5ML VIAL IV SCH ×2 (08:47→16:43)
[2020-07-05] MEDS: LEVETIRACETAM 500MG PREMIX 100 ML IV SCH ×2 (09:58→22:06)
[2020-07-05] MEDS: IPRATROPIUM/ALBUTEROL 0.5-3(2.5)MG/3ML NEB HHN SCH ×3 (12:39→20:48)
[2020-07-05] MEDS: VANCOMYCIN 750 MG PREMIX 150 ML IV SCH (18:03)
[2020-07-06] VITALS (20 sets, daily range): BP systolic 120–166; BP diastolic 72–97
[2020-07-06] MEDS: PIPERACILLIN/TAZOBACTAM 3.375 G in DEXT 5% WATER 100 ML IV SCH ×5 (00:13→23:20)
[2020-07-06] MEDS: IPRATROPIUM/ALBUTEROL 0.5-3(2.5)MG/3ML NEB HHN SCH ×7 (00:30→23:36)
[2020-07-06] MEDS: DEXT 5%/0.45% NACL KCL 20MEQ/L 1,000 ML IV SCH ×3 (01:49→20:36)
[2020-07-06] MEDS: VANCOMYCIN 750 MG PREMIX 150 ML IV SCH ×2 (01:54→10:25)
[2020-07-06] MEDS: METHYLPREDNISOLONE SOD SUCC 125 MG/2 ML VIAL IV SCH ×4 (04:06→20:36)
[2020-07-06] MEDS: NITROGLYCERIN OINT 1GM/INCH UDPKT TD SCH ×3 (07:08→21:17)
[2020-07-06 07:16] LABS: CHLORIDE 109 mEq/L (98-107)
[2020-07-06 08:27] LABS: HEMATOCRIT. 35.7 % (36.0-48.0); HEMOGLOBIN. 11.4 g/dL (12.0-16.0); MEAN CORPUSCULAR HEMOGLOBIN 29.6 pg (28.0-32.0); MEAN CORPUSCULAR VOLUME 92.6 fL (81.0-99.0); MEAN PLATELET VOLUME 7.6 fl (7.4-10.4); PLATELET 435 x1000/uL (130-400); RED BLOOD CELL COUNT 3.86 mill/uL (4.2-5.4); RED CELL DISTRIBUTION WIDTH 16.2 % (11.6-14.6)
[2020-07-06 08:41] LABS: CHLORIDE 109 mEq/L (98-107)
[2020-07-06] MEDS: AZATHIOPRINE 50MG TABLET PO SCH ×2 (09:00→17:35)
[2020-07-06] MEDS: LEVETIRACETAM 500MG PREMIX 100 ML IV SCH ×2 (09:00→20:36)
[2020-07-06] MEDS: FAMOTIDINE 20MG/2ML VIAL IV SCH (09:01)
[2020-07-06] MEDS: METOPROLOL TARTRATE 5MG/5ML VIAL IV SCH ×2 (09:01→17:35)
[2020-07-06] MEDS: HYDROXYCHLOROQUINE SULFATE 200MG TABLET PO SCH ×2 (09:01→17:35)
[2020-07-06 09:13] LABS: PLATELET ESTIMATE SLIGHTLY INCREASED
[2020-07-06] MEDS ORDERED: KEPP500 MT (14:42)
[2020-07-06] MEDS ORDERED: P20 MT (15:13)
[2020-07-06 17:06] LABS: ANTI-DNA DOUBLE STRANDED QUANT > 300 IU/mL (0-9); RNP ANTIBODY > 8.0 AI (0.0-0.9); SMITH ANTIBODY > 8.0 AI (0.0-0.9)
[2020-07-07 01:54] VITALS: BP 138/102
[2020-07-07] MEDS: METHYLPREDNISOLONE SOD SUCC 125 MG/2 ML VIAL IV SCH ×2 (02:56→10:06)
[2020-07-07] MEDS: IPRATROPIUM/ALBUTEROL 0.5-3(2.5)MG/3ML NEB HHN SCH ×2 (03:51→08:54)
[2020-07-07 04:00] VITALS: BP 157/97
[2020-07-07] MEDS: NITROGLYCERIN OINT 1GM/INCH UDPKT TD SCH (05:56)
[2020-07-07] MEDS: PIPERACILLIN/TAZOBACTAM 3.375 G in DEXT 5% WATER 100 ML IV SCH ×2 (05:57→12:00)
[2020-07-07] MEDS ORDERED: VANCOMYCIN 750 MG PREMIX 150 ML IV PRN (06:00)
[2020-07-07] MEDS: DEXT 5%/0.45% NACL KCL 20MEQ/L 1,000 ML IV SCH (06:00)
[2020-07-07 07:15] LABS: HEMATOCRIT. 34.9 % (36.0-48.0); HEMOGLOBIN. 11.2 g/dL (12.0-16.0); MEAN CORPUSCULAR HEMOGLOBIN 29.7 pg (28.0-32.0); MEAN CORPUSCULAR VOLUME 92.7 fL (81.0-99.0); MEAN PLATELET VOLUME 7.7 fl (7.4-10.4); PLATELET 424 x1000/uL (130-400); RED BLOOD CELL COUNT 3.77 mill/uL (4.2-5.4); RED CELL DISTRIBUTION WIDTH 16.7 % (11.6-14.6)
[2020-07-07 08:00] VITALS: BP 167/90
[2020-07-07 08:08] LABS: DRVVT LA 34.4 sec (0.0-47.0); LUPUS ANTICOAG INTERPRETATION Comment: (.); PTT-LA 26.6 sec (0.0-51.9)
[2020-07-07] MEDS: AZATHIOPRINE 50MG TABLET PO SCH (10:06)
[2020-07-07] MEDS: FAMOTIDINE 20MG/2ML VIAL IV SCH (10:06)
[2020-07-07] MEDS: HYDROXYCHLOROQUINE SULFATE 200MG TABLET PO SCH (10:06)
[2020-07-07] MEDS: METOPROLOL TARTRATE 5MG/5ML VIAL IV SCH (10:06)
[2020-07-07] MEDS: LEVETIRACETAM 500MG PREMIX 100 ML IV SCH (10:35)
[2020-07-07] MEDS ORDERED: LEVO500T2 PO (10:43)
[2020-07-07 11:00] VITALS: BP 167/90
[2020-07-07] MEDS ORDERED: LOSARTAN POTASSIUM 50 MG TABLET PO SCH (11:30)
[2020-07-07] MEDS ORDERED: VANCOMYCIN 750 MG PREMIX 150 ML IV SCH (12:00)
[2020-07-07 13:06] LABS: ANTI-CARDIOLIPIN AB IGG < 9 GPL U/mL (0-14); ANTI-CARDIOLIPIN AB IGM 10 MPL U/mL (0-12)
[2020-07-07 14:07] LABS: PLATELET ESTIMATE SLIGHTLY INCREASED
[2020-07-07 15:08] LABS: ANTI-MYELOPEROXIDASE AB < 9.0 U/mL (0.0-9.0); ANTI-PROTEINASE 3 ABS < 3.5 U/mL (0.0-3.5)
[2020-07-08 14:08] LABS: ANA IFA Positive (.); ANA SPECKLED PATTERN >1:1280 (.); ATYPICAL P-ANCA <1:20 titer (Neg:<1:20); CYTOPLASMIC C-ANCA <1:20 titer (Neg:<1:20)
== END 2020-07-07 12:20 | disposition home or self-care (01) | DRG 100 ==
LOC: ER 16:25 → CVICU 19:02 → EDBEDREQ 19:06 → EDBEDREQTM 19:06 → ENRESERV 19:42 → 5EST 07-06 12:33
PROVIDERS: ADMIT Internal Medicine; ATTEND Internal Medicine
PROC: 05HY33Z Insertion of Infusion Device into Upper Vein, Percutaneous Approach (ICD-10-PCS; principal; 2020-07-04)
PROC: B54MZZA Ultrasonography of Right Upper Extremity Veins, Guidance (ICD-10-PCS; 2020-07-04)
DX: G40.901 Epilepsy, unspecified, not intractable, with status epilepticus (principal); J69.0 Pneumonitis due to inhalation of food and vomit; I21.4 Non-ST elevation (NSTEMI) myocardial infarction; F84.0 Autistic disorder; G93.40 Encephalopathy, unspecified; D58.9 Hereditary hemolytic anemia, unspecified; N04.9 Nephrotic syndrome with unspecified morphologic changes; E46 Unspecified protein-calorie malnutrition; Z68.1 Body mass index [BMI] 19.9 or less, adult; E87.6 Hypokalemia; D64.9 Anemia, unspecified; R73.9 Hyperglycemia, unspecified; M32.9 Systemic lupus erythematosus, unspecified; D69.6 Thrombocytopenia, unspecified; D72.810 Lymphocytopenia; I10 Essential (primary) hypertension; J45.909 Unspecified asthma, uncomplicated; K75.4 Autoimmune hepatitis; K80.20 Calculus of gallbladder without cholecystitis without obstruction; M19.90 Unspecified osteoarthritis, unspecified site; Z79.899 Other long term (current) drug therapy; Z86.73 Personal history of transient ischemic attack (TIA), and cerebral infarction without residual deficits; Z87.440 Personal history of urinary (tract) infections; Z88.8 Allergy status to other drugs, medicaments and biological substances; I67.1 Cerebral aneurysm, nonruptured
CPT/HCPCS: 36415; 36600; 70496; 70498; 70551; 71045; 76937; 80048; 80053; 80156; 80165; 80184; 80185; 80202; 80305; 80320; 81003; 82375; 82550; 82553; 82805; 83520; 83735; 84156; 84484; 84703; 85025; 85027; 85613; 85651; 85732; 86147; 86160; 86225; 86235; 86256; 86880; 93005; 93306; 94640; 95816; 97162; 99285; C1725; J0282; J1720; J1953; J2060; J2543; J2930; J3370; J3480; J3490; J7060; J7500; Q9967; G0480

== ENCOUNTER 2022-02-27 08:39 | Inpatient (IN) | payer OTHER, MEDICAID ==
[~2022-02-27] VITALS: Ht 170.2 cm; Wt 59.9 kg
[~2022-02-27 08:39] MED LIST changes: +KEPP500 MT; -P20 MT
[2022-02-27] MEDS ORDERED: SODIUM CHLORIDE 0.9% 1000ML BAG (SEPSIS BOLUS) IV ONE (09:00)
[2022-02-27] MEDS ORDERED: LEVETIRACETAM 500MG PREMIX 100 ML IV ONE (09:00)
[2022-02-27] MEDS ORDERED: SODIUM CHLORIDE 0.9% 1,000 ML IV ONE (09:00)
[2022-02-27 09:40] LABS: HEMATOCRIT. 35.6 % (36.0-48.0); HEMOGLOBIN. 11.3 g/dL (12.0-16.0); MEAN CORPUSCULAR HEMOGLOBIN 30.6 pg (28.0-32.0); MEAN CORPUSCULAR VOLUME 95.9 fL (81.0-99.0); PLATELET 267 x1000/uL (130-400); RED BLOOD CELL COUNT 3.71 mill/uL (4.2-5.4); RED CELL DISTRIBUTION WIDTH 15.9 % (11.6-14.6)
[2022-02-27 09:53] LABS: CHLORIDE 110 mEq/L (98-107)
[2022-02-27 10:07] LABS: ETHANOL BLOOD < 10 mg/dL; PHENOBARBITAL 2.2 ug/mL (15.0-40.0); VALPROIC ACID <3.0 ug/mL ug/mL (50-100)
[2022-02-27 10:11] LABS: CARBAMAZEPINE < 0.5 ug/mL (4-12)
[2022-02-27] MEDS ORDERED: PIPERACILLIN/TAZ 3.375G PREMIX 50 ML IV ONE (10:45)
[2022-02-27 10:59] LABS: PLATELET ESTIMATE NORMAL
[2022-02-27] MEDS: VANCOMYCIN 1G PREMIX 200 ML IV SCH (11:38)
[2022-02-27] MEDS ORDERED: IPRATROPIUM/ALBUTEROL 0.5-3(2.5)MG/3ML NEB HHN PRN (14:30)
[2022-02-27] MEDS ORDERED: DIPHENHYDRAMINE 50MG/ML VIAL IV PRN (14:30)
[2022-02-27] MEDS ORDERED: LORAZEPAM 2MG/ML CPJ IV PRN (14:30)
[2022-02-27] MEDS ORDERED: ONDANSETRON HCL 4MG/2ML INJ IV PRN (14:30)
[2022-02-27] MEDS ORDERED: CLONIDINE 0.1MG TABLET PO PRN (14:30)
[2022-02-27] MEDS ORDERED: LEVETIRACETAM 500 MG in SODIUM CHLORIDE 0.9% 100 ML IV SCH (14:30)
[2022-02-27 14:55] VITALS: BP 138/86
[2022-02-27 16:00] VITALS: BP 138/98
[2022-02-27] MEDS: AZATHIOPRINE 50MG TABLET PO SCH (18:00)
[2022-02-27] MEDS: HYDROXYCHLOROQUINE SULFATE 200MG TABLET PO SCH (18:24)
[2022-02-27 20:00] VITALS: BP 155/75
[2022-02-27] MEDS: ACETAMINOPHEN 325MG TABLET PO PRN (20:49)
[2022-02-27] MEDS: LEVETIRACETAM 500MG PREMIX 100 ML IV SCH (20:52)
[2022-02-28] VITALS: BP 107/63
[2022-02-28 04:00] VITALS: BP 111/63
[2022-02-28 06:11] LABS: BASOPHILS % 0.5 % (0.0-2.0); EOSINOPHILS % 0.1 % (0.0-5.0); HEMATOCRIT. 31.1 % (36.0-48.0); HEMOGLOBIN. 10.2 g/dL (12.0-16.0); MEAN CORPUSCULAR HEMOGLOBIN 30.5 pg (28.0-32.0); MEAN PLATELET VOLUME 8.2 fl (7.4-10.4); MONOCYTES % 6.7 % (2.0-8.0); NEUTROPHILS % 83.7 % (40.0-76.0); PLATELET 252 x1000/uL (130-400); RED BLOOD CELL COUNT 3.34 mill/uL (4.2-5.4); RED CELL DISTRIBUTION WIDTH 15.2 % (11.6-14.6)
[2022-02-28 06:48] LABS: CHLORIDE 109 mEq/L (98-107)
[2022-02-28 08:00] VITALS: BP 117/75
[2022-02-28] MEDS: ACETAMINOPHEN 325MG TABLET PO PRN ×3 (08:55→21:27)
[2022-02-28] MEDS: HYDROXYCHLOROQUINE SULFATE 200MG TABLET PO SCH (08:55)
[2022-02-28] MEDS: AMLODIPINE 5MG TABLET PO SCH (08:56)
[2022-02-28] MEDS: LEVETIRACETAM 500MG PREMIX 100 ML IV SCH ×2 (08:56→21:27)
[2022-02-28] MEDS: AZATHIOPRINE 50MG TABLET PO SCH (09:00)
[2022-02-28] MEDS: VANCOMYCIN 1G PREMIX 200 ML IV SCH (10:45)
[2022-02-28 12:00] VITALS: BP 149/84
[2022-02-28 16:00] VITALS: BP 120/75
[2022-02-28] MEDS ORDERED: HYDROCODONE/ACETAMINOPHEN 5/325MG TABLET PO PRN (18:30)
[2022-02-28] MEDS ORDERED: NALOXONE HCL 0.4MG/ML VIAL IV PRN (18:30)
[2022-02-28 18:41] LABS: CLARITY URINE CLEAR (CLEAR); COLOR URINE YELLOW (YELLOW); KETONES URINE 1+ (NEGATIVE); LEUKOCYTE ESTERASE URINE 1+ (NEGATIVE); NITRITE URINE NEGATIVE (NEGATIVE); OCCULT BLOOD URINE 2+ (NEGATIVE); PROTEIN URINE 3+ (NEGATIVE); SPECIFIC GRAVITY URINE 1.019 (1.005-1.030); UROBILINOGEN URINE 0.2 E.U./dL (0.2-1.0)
[2022-02-28 18:54] LABS: *AMPHETAMINES SCREEN URINE NEGATIVE (NEGATIVE); *BARBITURATES SCREEN URINE NEGATIVE (NEGATIVE); *BENZODIAZEPINES SCREEN URINE NEGATIVE (NEGATIVE); *COCAINE SCREEN URINE NEGATIVE (NEGATIVE); CANNABINOID URINE SCREEN NEGATIVE (NEGATIVE); METHADONE URINE SCREEN NEGATIVE (NEGATIVE); OPIATES URINE SCREEN NEGATIVE (NEGATIVE); PHENCYCLIDINE URINE SCREEN NEGATIVE (NEGATIVE)
[2022-02-28 20:00] VITALS: BP 140/82
[2022-03-01] VITALS: BP 144/80
[2022-03-01 04:00] VITALS: BP 166/81
[2022-03-01 06:03] LABS: HEMATOCRIT. 31.4 % (36.0-48.0); HEMOGLOBIN. 10.3 g/dL (12.0-16.0); MEAN CORPUSCULAR HEMOGLOBIN 30.5 pg (28.0-32.0); MEAN PLATELET VOLUME 8.7 fl (7.4-10.4); PLATELET 272 x1000/uL (130-400); RED BLOOD CELL COUNT 3.37 mill/uL (4.2-5.4); RED CELL DISTRIBUTION WIDTH 15.5 % (11.6-14.6)
[2022-03-01 08:00] VITALS: BP 126/78
[2022-03-01 08:19] LABS: CHLORIDE 111 mEq/L (98-107)
[2022-03-01] MEDS: LEVETIRACETAM 500MG/5ML CUP PO SCH ×2 (09:55→20:36)
[2022-03-01] MEDS: AMLODIPINE 5MG TABLET PO SCH (09:55)
[2022-03-01] MEDS: AZATHIOPRINE 50MG TABLET PO SCH (09:56)
[2022-03-01] MEDS: HYDROXYCHLOROQUINE SULFATE 200MG TABLET PO SCH (09:56)
[2022-03-01 12:00] VITALS: BP 113/71
[2022-03-01 13:22] LABS: PLATELET ESTIMATE NORMAL
[2022-03-01 16:00] VITALS: BP 128/76
[2022-03-01] MEDS: CLOPIDOGREL 75MG TABLET PO SCH (16:26)
[2022-03-01] MEDS: ASPIRIN 81MG TABLET PO SCH (16:27)
[2022-03-01 20:00] VITALS: BP 103/64
[2022-03-01] MEDS: ATORVASTATIN CALCIUM 10MG TABLET PO SCH (20:36)
[2022-03-02] VITALS: BP 107/83
[2022-03-02 04:00] VITALS: BP 111/67
[2022-03-02 06:18] LABS: BASOPHILS % 0.1 % (0.0-2.0); EOSINOPHILS % 0.4 % (0.0-5.0); HEMATOCRIT. 30.8 % (36.0-48.0); HEMOGLOBIN. 10.3 g/dL (12.0-16.0); LYMPHOCYTES % 9.5 % (20.0-50.0); MEAN CORPUSCULAR HEMOGLOBIN 31.1 pg (28.0-32.0); MEAN CORPUSCULAR VOLUME 92.8 fL (81.0-99.0); MEAN PLATELET VOLUME 9.2 fl (7.4-10.4); MONOCYTES % 5.3 % (2.0-8.0); NEUTROPHILS % 84.7 % (40.0-76.0); PLATELET 271 x1000/uL (130-400); RED BLOOD CELL COUNT 3.32 mill/uL (4.2-5.4); RED CELL DISTRIBUTION WIDTH 14.9 % (11.6-14.6)
[2022-03-02 06:31] LABS: CHLORIDE 111 mEq/L (98-107)
[2022-03-02 08:00] VITALS: BP 111/69
[2022-03-02] MEDS: AZATHIOPRINE 50MG TABLET PO SCH (09:13)
[2022-03-02] MEDS: ASPIRIN 81MG TABLET PO SCH (09:13)
[2022-03-02] MEDS: LEVETIRACETAM 500MG/5ML CUP PO SCH ×2 (09:13→21:42)
[2022-03-02] MEDS: CLOPIDOGREL 75MG TABLET PO SCH (09:14)
[2022-03-02] MEDS: HYDROXYCHLOROQUINE SULFATE 200MG TABLET PO SCH (09:14)
[2022-03-02] MEDS: AMLODIPINE 5MG TABLET PO SCH (09:14)
[2022-03-02] MEDS: ENOXAPARIN 40MG/0.4ML SYR SUBCUT SCH (11:25)
[2022-03-02 12:00] VITALS: BP 100/62
[2022-03-02 16:00] VITALS: BP 108/67
[2022-03-02 20:00] VITALS: BP 123/87
[2022-03-02] MEDS: ATORVASTATIN CALCIUM 10MG TABLET PO SCH (21:42)
[2022-03-03] VITALS: BP 118/69
[2022-03-03] MEDS ORDERED: METHYLPREDNISOLONE SOD SUCC 125 MG/2 ML VIAL IV SCH (00:30)
[2022-03-03 04:00] VITALS: BP 126/76
[2022-03-03 06:25] LABS: BASOPHILS % 0.2 % (0.0-2.0); CHLORIDE 110 mEq/L (98-107); EOSINOPHILS % 0.4 % (0.0-5.0); HEMATOCRIT. 31.3 % (36.0-48.0); HEMOGLOBIN. 10.2 g/dL (12.0-16.0); LYMPHOCYTES % 11.9 % (20.0-50.0); MEAN CORPUSCULAR VOLUME 92.4 fL (81.0-99.0); MEAN PLATELET VOLUME 9.1 fl (7.4-10.4); MONOCYTES % 3.3 % (2.0-8.0); NEUTROPHILS % 84.2 % (40.0-76.0); PLATELET 309 x1000/uL (130-400); RED BLOOD CELL COUNT 3.39 mill/uL (4.2-5.4); RED CELL DISTRIBUTION WIDTH 15.3 % (11.6-14.6)
[2022-03-03 08:26] VITALS: BP 106/61
[2022-03-03] MEDS: ENOXAPARIN 40MG/0.4ML SYR SUBCUT SCH (08:47)
[2022-03-03] MEDS: HYDROXYCHLOROQUINE SULFATE 200MG TABLET PO SCH (08:47)
[2022-03-03] MEDS: AZATHIOPRINE 50MG TABLET PO SCH (08:48)
[2022-03-03] MEDS: ASPIRIN 81MG TABLET PO SCH (08:48)
[2022-03-03] MEDS: CLOPIDOGREL 75MG TABLET PO SCH (08:48)
[2022-03-03] MEDS: AMLODIPINE 5MG TABLET PO SCH (08:48)
[2022-03-03] MEDS: METHYLPREDNISOLONE SOD SUCC 125 MG/2 ML VIAL IV SCH ×3 (08:49→17:24)
[2022-03-03] MEDS: LEVETIRACETAM 500MG/5ML CUP PO SCH ×2 (08:49→20:43)
[2022-03-03] MEDS: MYCOPHENOLATE MOFETIL 250MG CAPSULE PO SCH ×2 (08:50→20:44)
[2022-03-03 11:49] VITALS: BP 136/78
[2022-03-03 15:32] VITALS: BP 123/70
[2022-03-03 20:00] VITALS: BP 124/78
[2022-03-03] MEDS: ATORVASTATIN CALCIUM 10MG TABLET PO SCH (20:43)
[2022-03-04] VITALS: BP 151/88
[2022-03-04 04:00] VITALS: BP 150/82
[2022-03-04] MEDS: METHYLPREDNISOLONE SOD SUCC 125 MG/2 ML VIAL IV SCH ×4 (05:47→18:07)
[2022-03-04 08:00] VITALS: BP 140/78
[2022-03-04] MEDS: AMLODIPINE 5MG TABLET PO SCH (08:17)
[2022-03-04] MEDS: LEVETIRACETAM 500MG/5ML CUP PO SCH ×2 (08:17→22:22)
[2022-03-04] MEDS: HYDROXYCHLOROQUINE SULFATE 200MG TABLET PO SCH (08:17)
[2022-03-04] MEDS: AZATHIOPRINE 50MG TABLET PO SCH (08:17)
[2022-03-04] MEDS: ENOXAPARIN 40MG/0.4ML SYR SUBCUT SCH (08:17)
[2022-03-04] MEDS: MYCOPHENOLATE MOFETIL 250MG CAPSULE PO SCH ×2 (08:18→22:23)
[2022-03-04] MEDS: CLOPIDOGREL 75MG TABLET PO SCH (08:18)
[2022-03-04] MEDS: ASPIRIN 81MG TABLET PO SCH (08:18)
[2022-03-04 08:44] LABS: BASOPHILS % 0.2 % (0.0-2.0); HEMATOCRIT. 31.2 % (36.0-48.0); HEMOGLOBIN. 10.2 g/dL (12.0-16.0); LYMPHOCYTES % 10.6 % (20.0-50.0); MEAN CORPUSCULAR HEMOGLOBIN 30.3 pg (28.0-32.0); MEAN CORPUSCULAR VOLUME 92.8 fL (81.0-99.0); MEAN PLATELET VOLUME 9.3 fl (7.4-10.4); MONOCYTES % 2.5 % (2.0-8.0); NEUTROPHILS % 86.7 % (40.0-76.0); PLATELET 338 x1000/uL (130-400); RED BLOOD CELL COUNT 3.36 mill/uL (4.2-5.4); RED CELL DISTRIBUTION WIDTH 15.2 % (11.6-14.6)
[2022-03-04 12:00] VITALS: BP 130/76
[2022-03-04 15:57] VITALS: BP 112/73
[2022-03-04 20:00] VITALS: BP 122/87
[2022-03-04] MEDS: ATORVASTATIN CALCIUM 10MG TABLET PO SCH (22:23)
[2022-03-05] VITALS: BP 146/77
[2022-03-05] MEDS: METHYLPREDNISOLONE SOD SUCC 125 MG/2 ML VIAL IV SCH ×2 (01:49→06:51)
[2022-03-05 04:00] VITALS: BP 128/82
[2022-03-05 05:59] LABS: BASOPHILS % 0.2 % (0.0-2.0); HEMATOCRIT. 27.9 % (36.0-48.0); MEAN CORPUSCULAR HEMOGLOBIN 30.3 pg (28.0-32.0); MEAN CORPUSCULAR VOLUME 93.7 fL (81.0-99.0); MEAN PLATELET VOLUME 8.7 fl (7.4-10.4); MONOCYTES % 4.7 % (2.0-8.0); NEUTROPHILS % 87.1 % (40.0-76.0); PLATELET 325 x1000/uL (130-400); RED BLOOD CELL COUNT 2.97 mill/uL (4.2-5.4)
[2022-03-05 06:08] LABS: CHLORIDE 115 mEq/L (98-107)
[2022-03-05 08:00] VITALS: BP 131/80
[2022-03-05] MEDS: ASPIRIN 81MG TABLET PO SCH (09:50)
[2022-03-05] MEDS: CLOPIDOGREL 75MG TABLET PO SCH (09:50)
[2022-03-05] MEDS: HYDROXYCHLOROQUINE SULFATE 200MG TABLET PO SCH (09:50)
[2022-03-05] MEDS: PREDNISONE 20MG TABLET PO SCH ×3 (09:51→17:02)
[2022-03-05] MEDS: AZATHIOPRINE 50MG TABLET PO SCH (09:51)
[2022-03-05] MEDS: AMLODIPINE 5MG TABLET PO SCH (09:51)
[2022-03-05] MEDS: ENOXAPARIN 40MG/0.4ML SYR SUBCUT SCH (09:52)
[2022-03-05] MEDS: LEVETIRACETAM 500MG/5ML CUP PO SCH (09:52)
[2022-03-05] MEDS: MYCOPHENOLATE MOFETIL 250MG CAPSULE PO SCH (09:53)
[2022-03-05 12:00] VITALS: BP 118/69
[2022-03-05] MEDS ORDERED: HYDR200T35 PO (13:25)
[2022-03-05] MEDS ORDERED: CELL2 PO (13:25)
[2022-03-05] MEDS ORDERED: ATOR10TA PO (13:25)
[2022-03-05] MEDS ORDERED: P20 PO (13:25)
[2022-03-05] MEDS ORDERED: PANT40TA51 MT (13:25)
[2022-03-05] MEDS ORDERED: ASPI-1406 MT (13:25)
[2022-03-05] MEDS ORDERED: CLOP75TA15 PO (13:25)
[2022-03-05] MEDS ORDERED: AZAT50TA18 PO (13:25)
[2022-03-05 14:21] VITALS: BP 118/69
[2022-03-05 16:00] VITALS: BP_SYST 134; BP_SYST 136; BP_DIAS 77; BP_DIAS 80
[2022-03-06 09:08] LABS: ANTI-DNA DOUBLE STRANDED QUANT > 300 IU/mL (0-9)
[2022-03-07 13:07] LABS: ANTI-MYELOPEROXIDASE AB < 9.0 U/mL (0.0-9.0); ANTI-PROTEINASE 3 ABS < 3.5 U/mL (0.0-3.5)
[2022-03-08 13:11] LABS: ANA HOMOGENEOUS PATTERN >1:1280 (.); ANA IFA Positive (.); CYTOPLASMIC C-ANCA <1:20 titer (Neg:<1:20); PERINUCLEAR P-ANCA <1:20 titer (Neg:<1:20)
== END 2022-03-05 17:22 | disposition home or self-care (01) | DRG 545 ==
LOC: ER 08:39 → 8WST 10:37 → EDBEDREQ 10:44 → EDBEDREQTM 10:44 → ENRESERV 11:29
PROVIDERS: ADMIT Internal Medicine; ATTEND Internal Medicine
DX: M32.19 Other organ or system involvement in systemic lupus erythematosus (principal); G05.3 Encephalitis and encephalomyelitis in diseases classified elsewhere; E43 Unspecified severe protein-calorie malnutrition; N17.0 Acute kidney failure with tubular necrosis; G93.41 Metabolic encephalopathy; F84.0 Autistic disorder; N04.9 Nephrotic syndrome with unspecified morphologic changes; M31.8 Other specified necrotizing vasculopathies; G40.909 Epilepsy, unspecified, not intractable, without status epilepticus; T43.3X5A Adverse effect of phenothiazine antipsychotics and neuroleptics, initial encounter; I77.6 Arteritis, unspecified; G31.9 Degenerative disease of nervous system, unspecified; D72.810 Lymphocytopenia; K75.4 Autoimmune hepatitis; N28.9 Disorder of kidney and ureter, unspecified; D64.9 Anemia, unspecified; E86.0 Dehydration; M19.90 Unspecified osteoarthritis, unspecified site; I10 Essential (primary) hypertension; J45.909 Unspecified asthma, uncomplicated; M32.9 Systemic lupus erythematosus, unspecified; Z79.899 Other long term (current) drug therapy; Z68.20 Body mass index [BMI] 20.0-20.9, adult; Z20.822 Contact with and (suspected) exposure to COVID-19; Z86.73 Personal history of transient ischemic attack (TIA), and cerebral infarction without residual deficits
CPT/HCPCS: 36415; 70551; 71045; 80048; 80053; 80156; 80165; 80184; 80185; 80305; 80307; 80320; 80329; 81003; 82140; 82962; 83520; 83605; 83880; 84145; 84443; 84484; 85025; 85651; 86160; 86225; 86256; 87426; 92523; 93005; 93970; 95816; 97116; 97162; 97166; 97530; 99291; J1200; J1650; J1953; J2543; J2930; J3370; J7030; J7500; J7512; J7517; G0480

== ENCOUNTER 2022-03-13 12:57 | Emergency (ER) | payer OTHER, MEDICAID ==
[~2022-03-13] VITALS: Ht 162.6 cm; Wt 48.0 kg
[~2022-03-13 12:57] MED LIST changes: +ASPI-1406 MT; +ATOR10TA PO; +CELL2 PO; +CLOP75TA15 PO; +P20 PO; +PANT40TA51 MT; -TRAM50TA3 PO
[2022-03-13 13:05] VITALS: BP 161/104
[2022-03-13 13:48] LABS: CHLORIDE 108 mEq/L (98-107)
[2022-03-13 13:49] LABS: BASOPHILS % 0.3 % (0.0-2.0); EOSINOPHILS % 0.2 % (0.0-5.0); HEMATOCRIT. 30.2 % (36.0-48.0); LYMPHOCYTES % 8.6 % (20.0-50.0); MEAN CORPUSCULAR HEMOGLOBIN 30.5 pg (28.0-32.0); MONOCYTES % 4.5 % (2.0-8.0); NEUTROPHILS % 86.4 % (40.0-76.0); PLATELET 402 x1000/uL (130-400); RED BLOOD CELL COUNT 3.29 mill/uL (4.2-5.4)
== END 2022-03-13 20:21 | disposition left against medical advice (07) ==
LOC: ER 14:05
DX: Z53.21 Procedure and treatment not carried out due to patient leaving prior to being seen by health care provider (principal); R35.0 Frequency of micturition; R30.0 Dysuria; R00.0 Tachycardia, unspecified
CPT/HCPCS: 36415; 80053; 83605; 85025; 99283